=== PATIENT | male | born 1955 | race Two or more races ===

== ENCOUNTER 2017-09-17 14:26 | Observation (INO) | payer MEDICARE, OTHER ==
--- NOTE | 2017-09-17 15:55 | PDOC ---
History of Present Illness - History of Present Illness Initial Comments: 09/17/17 16:07 62 y.o male with significant past medical history of IDDM , HTN, HLD, who presents to the emergency room BIBA from home with a glucose in the low 30s and possible syncopal episode. EMS administered 2 glucose packets en route. The patient explains that he took his insulin yesterday morning as he normally does.Around 6pm yesterday evening, the patient ate his last meal. Then around midnight, the patient went to get a glass of water in the kitchen and cannot remember anything after filling up the glass of water. He denies lightheadedness , dizziness, chest pain, palpitations, recent illness, back pain, abd pain, headache, or SOB prior to losing consciousness. The patients family member repeatedly called the patient this morning and could not get hold of him. She showed up to the patients house and heard the phone ringing from the outside. She called 911 and police knocked the door down. The patient was passed out on the kitchen floor when they found him. The patient believes that he must have been on the floor for 8 hours. The patient does not have any complaints at this time. He notes that he recently switched to Insulin from metformin and glyburide 3 months ago. Denies fever, chills, nausea, vomiting Denies chest pain, SOB, cough. Denies recent illness. Allergies: NKA PCP: Dr. Joy <Rosalinda Diego - Last Filed: 09/17/17 16:07> - General History Source: Patient <Leroy Salas - Last Filed: 09/17/17 20:26> - General Chief Complaint: Blood Sugar Problem Stated Complaint: BLOOD SUGAR ISSUES Time Seen by Provider: 09/17/17 15:05 Past History <Rosalinda Diego - Last Filed: 09/17/17 16:07> - Past Medical History Anemia: Yes (IRON DEFICIENT) Asthma: No Cancer: No Cardiac Disorders: No COPD: No CHF: No DVT: No Diabetes: Yes GI Disorders: Yes (REDUNDANT COLON;) HTN: Yes Hypercholesterolemia: Yes Kidney Stones: Yes Thyroid Disease: No - Surgical History Abdominal Surgery: No Appendectomy: No Cardiac Surgery: No Cholecystectomy: No Lung Surgery: No Neurologic Surgery: No - Suicide/Smoking/Psychosocial Hx Smoking History: Never smoked Have you smoked in the past 12 months: No Information on smoking cessation initiated: No Hx Alcohol Use: No Drug/Substance Use Hx: No Substance Use Type: None Hx Substance Use Treatment: No <Leroy Salas - Last Filed: 09/17/17 20:26> - Past Medical History Allergies/Adverse Reactions: Allergies Allergy/AdvReac Type Severity Reaction Status Date / Time No Known Allergies Allergy Verified 09/17/17 14:56 Home Medications: Ambulatory Orders Alfuzosin HCl [Alfuzosin HCl ER] 10 mg PO DAILY 04/06/14 Amlodipine Besylate [Norvasc -] 10 mg PO DAILY 04/06/14 Lovastatin 40 mg PO HS 04/06/14 Review of Systems - Review of Systems Able to Perform ROS?: Yes Comments:: 09/17/17 16:07 CONSTITUTIONAL: No reported: Fever, Chills, Diaphoresis, Generalized Weakness, Malaise, Loss of Appetite HEENT: No reported: Rhinorrhea, Nasal Congestion, Throat Pain, Throat Swelling, Difficulty Swallowing, Mouth Swelling, Ear Pain, Eye Pain, Visual Changes CARDIOVASCULAR: No reported: Chest Pain, Syncope, Palpitations, Irregular Heart Rate, Lightheadedness, Peripheral Edema RESPIRATORY: No reported: Cough, Shortness of Breath, SOB with Exertion, Orthopnea, Wheezing , Stridor, Hemoptysis GASTROINTESTINAL: No reported: Abdominal pain, Abdominal Distension, Nausea, Vomiting, Diarrhea, Constipation, Melena, Hematochezia GENITOURINARY: No reported: Dysuria, Frequency, Urgency, Hesitancy, Flank Pain, Genital Pain MUSCULOSKELETAL: No reported: Myalgia, Arthralgia, Joint Swelling, Back pain, Neck Pain SKIN: No reported: Rash, Itching, Pallor HEMEATOLOGIC/IMMUNOLOGIC: No reported: Easy Bleeding, Easy Bruising, Lymphadenopathy, Frequent infections ENDOCRINE: +Low glucose No reported: Unexplained Weight Gain, Unexplained Weight Loss, Heat Intolerance , Cold Intolerance NEUROLOGIC: +syncopal episode No reported: Headache, Focal Weakness, Paresthesias, Vertigo, Lightheadedness, Unsteady Gait, Seizure, Mental Status Changes, Incontinence PSYCHIATRIC: No reported: Anxiety, Depression <Rosalinda Diego - Last Filed: 09/17/17 16:07> *Physical Exam - Vital Signs Last Vital Signs Temp Pulse Resp BP Pulse Ox 97.9 F 72 18 157/79 100 12/29/17 14:40 09/17/17 14:40 09/17/17 14:40 09/17/17 14:40 09/17/17 14:40 - Physical Exam Comments: 09/17/17 16:08 GENERAL: The patient is awake, alert, and fully oriented, Nontoxic - in no acute distress. HEAD: Normocephalic, atraumatic. EYES: extraocular movements intact, sclera anicteric, conjunctiva clear. ENT: Normal voice, Moist mucous membranes. NECK: Normal range of motion, supple LUNGS: Breath sounds equal, clear to auscultation bilaterally. No wheezes, no rhonchi, no rales. HEART: Regular rate and rhythm, normal S1 and S2 without murmur, rub or gallop. ABDOMEN: Soft, nontender, normoactive bowel sounds. No guarding, no rebound. . No CVA tenderness EXTREMITIES: Normal range of motion, no edema. No clubbing or cyanosis. No cords, erythema, or tenderness. NEUROLOGICAL: No facial assymetry, Normal speech, PSYCH: Normal mood, normal affect. SKIN: Warm, Dry, normal turgor, Back: No midline tenderness to the cervical, thoracic or lumbar spine Musculoskelatal: FROM of b/l shoulders, elbows, wrist. FROM of hips, knees, ankles - No signs of ecchymosis, erythema, or crepitus noted on palpation extremities, chest wall, clavicals, ribs, back. <Rosalinda Diego - Last Filed: 09/17/17 16:07> - Vital Signs Last Vital Signs Temp Pulse Resp BP Pulse Ox 97.9 F 72 18 157/79 100 09/17/17 14:40 09/17/17 14:40 09/17/17 14:40 09/17/17 14:40 09/17/17 14:40 <Leroy Salas - Last Filed: 09/17/17 20:26> ED Treatment Course - ADDITIONAL ORDERS Additional order review: Laboratory Results 09/17/17 14:50 POC Glucometer [id number] 09/17/17 14:50 POC Glucometer [id number] <Rosalinda Diego - Last Filed: 09/17/17 16:07> - LABORATORY CBC & Chemistry Diagram: 09/17/17 17:00 09/17/17 17:00 - ADDITIONAL ORDERS Additional order review: Laboratory Results 09/17/17 14:50 POC Glucometer [id number] 09/17/17 14:50 POC Glucometer [id number] - RADIOLOGY Radiology Studies Ordered: Category Date Time Status CHEST X-RAY PORTABLE* [RAD] Stat Radiology 09/17/17 15:45 Ordered <Leroy Salas - Last Filed: 09/17/17 20:26> Medical Decision Making - Medical Decision Making 09/17/17 15:46 62y M hx of iDDM, HTN, NL, presents with complaint of syncope. The pt states he lasts remember around midnight, he woke up for something to drink, and that is the last thing he rmemebers. His family found that he was not answering his phone, called EMS and they found him unresponsive onthe floor with BGM 37 - he states he had some food last night a small dinner - didnt take his insulin this AM. Pt states he was feeling well yesterday and is fine currently without any compliaints of headache, dizziness, cp, sob, palpiations, abd pain, n/v, back pain, neck pain, extremity pain. ddx = syncope - anemia, metabolic dernangement, arrythmia - no associated pain or neuro symtoms to suggest a vascular event possibly related to hypoglcyemia - although pt has not taken any antihypoglycemics 09/17/17 19:25 labs reviewed cxr neg will observe the pt for hypoglycemia and syncope 09/17/17 20:26 case yahir kwok - agree with dg and will observe in tele under dr. kidd service <Leroy Salas - Last Filed: 09/17/17 20:26> *DC/Admit/Observation/Transfer - Attestations Scribe Attestion: 09/17/17 16:08 Documentation prepared by YEFRI Landers, acting as medical dir for Leroy Salas MD. <Rosalinda Diego - Last Filed: 09/17/17 16:07> - Discharge Dispostion Admit: Yes <Leroy Salas - Last Filed: 09/17/17 20:26> Diagnosis at time of Disposition: Syncope Qualifiers: Syncope type: unspecified Qualified Code(s): R55 - Syncope and collapse - Discharge Dispostion Condition at time of disposition: Guarded
[2017-09-17 17:10] LABS: BASO % 0.2 % (0-2.0); EOS % 0.3 % (0-4.5); HEMATOCRIT 40.5 % (35.4-49); HEMOGLOBIN 12.8 GM/dL (11.7-16.9); LYMPH % 17.2 % (8-40); MCH 22.3 pg (25.7-33.7); MCHC 31.7 g/dl (32.0-35.9); MEAN CELL VOLUME 70.4 fl (80-96); MEAN PLT VOLUME 8.2 fl (7.5-11.1); MONO % 4.1 % (3.8-10.2); NEUT % 78.2 % (42.8-82.8); PLATELET COUNT 291 K/MM3 (134-434); RBC 5.75 M/mm3 (4.00-5.60); WHITE BLOOD COUNT 10.5 K/mm3 (4.0-10.0)
[2017-09-17 17:16] LABS: ADD RBC MORPHOLOGY YES
[2017-09-17 17:20] LABS: URINE APPEARANCE CLEAR; URINE BILIRUBIN NEGATIVE (NEGATIVE); URINE BLOOD 1+ (NEGATIVE); URINE COLOR LTYELLOW; URINE GLUCOSE (UA) 1+ (NEGATIVE); URINE KETONE NEGATIVE (NEGATIVE); URINE LEUK ESTERASE NEGATIVE (NEGATIVE); URINE NITRITE NEGATIVE (NEGATIVE); URINE UROBILINOGEN NEGATIVE mg/dL (0.2-1.0)
[2017-09-17 17:47] LABS: ALBUMIN 3.5 g/dl (3.4-5.0); ANION GAP 13 (8-16); BILIRUBIN,TOTAL 0.2 mg/dL (0.2-1.0); BLOOD UREA NITROGEN 11 mg/dL (7-18); CHLORIDE 103 mmol/L (98-107); CO2 23 mmol/L (21-32); CREATININE 1.1 mg/dL (0.7-1.3); GLUCOSE,RANDOM 244 mg/dL (74-106); POTASSIUM 4.2 mmol/L (3.5-5.1); SGOT/AST 15 U/L (15-37); SGPT/ALT 20 U/L (12-78); SODIUM 139 mmol/L (136-145); TOT PROT 7.2 g/dl (6.4-8.2)
[2017-09-17 17:49] LABS: ALK PHOS 146 U/L (45-117)
[2017-09-17 17:56] LABS: URINE PROTEIN 2+ (NEGATIVE)
[2017-09-17 18:27] LABS: EPI CELLS RARE /HPF (FEW)
[2017-09-17 19:58] LABS: ANISOCYTOSIS 1+; OVALOCYTE 1+; PLATELET ESTIMATE ADEQUATE; TARGET CELLS 1+; TEAR DROP CELLS 1+
--- NOTE | 2017-09-17 20:10 | HP ---
CHIEF COMPLAINT: " I passed out " PCP: Dr. Adorno HISTORY OF PRESENT ILLNESS: Patient is a belarusian speaking 62-year-old male was brought in to the ED via EMS after he was found on the floor by his granddaughter this morning. As per the patient, he was apparently well until midnight, was watching a game at home, remembers going to the kitchen to get a glass of water but doesn't remember anything what happened until 911 arrived. As per the report, EMS found his blood sugar to be in 30's was given 2 packs of glucose and he was more awake after that. No urinary or bowel incontinence. Patient denies Dizziness, headache, blurring of vision, chest pain, sob, cough, palpitation, abdominal pain, nausea or vomiting prior to the fall. Patient only reports to have been very tired in the morning. Granddaughter mentions that this morning she called him but he didn't answer so she went to his apartment and patient was found on the floor, had spilled water on himself. He was lying on the floor with his eyes opened, didn't make sense what he was talking about and started laughing. Granddaughter reports he had a similar episode about 5 years ago where he passed out in bed, had uprolling of eyes but no seizure activity. Bowel/Bladder habit normal. Sleep/Appetite normal prior to this incident. ER course was notable for: (1) Afebrile, hemodynamically stable (2) EKG: No ST or T wave changes, CXR: no acute pathology, no # (3) Head CT without contrast-pending Recent Travel: None PAST MEDICAL HISTORY: Hypertension, Hyperlipidemia, DM, h/o Syncope PAST SURGICAL HISTORY: None Social History: Smoking: Denies Alcohol: Denies Drugs: Denies Family History: Non contributory Allergies No Known Allergies Allergy (Verified 09/17/17 14:56) HOME MEDICATIONS: Home Medications Medication Instructions Recorded Alfuzosin HCl [Alfuzosin HCl ER] 10 mg PO DAILY 04/06/14 Amlodipine Besylate [Norvasc -] 10 mg PO DAILY 04/06/14 Lovastatin 40 mg PO HS 04/06/14 REVIEW OF SYSTEMS CONSTITUTIONAL: Absent: fever, chills, diaphoresis, generalized weakness, malaise, loss of appetite, weight change HEENT: Absent: rhinorrhea, nasal congestion, throat pain, throat swelling, difficulty swallowing, mouth swelling, ear pain, eye pain, visual changes CARDIOVASCULAR: Absent: chest pain, syncope, palpitations, irregular heart rate, lightheadedness , peripheral edema RESPIRATORY: Absent: cough, shortness of breath, dyspnea with exertion, orthopnea, wheezing, stridor, hemoptysis GASTROINTESTINAL: Absent: abdominal pain, abdominal distension, nausea, vomiting, diarrhea, constipation, melena, hematochezia GENITOURINARY: Absent: dysuria, frequency, urgency, hesitancy, hematuria, flank pain, genital pain MUSCULOSKELETAL: Absent: myalgia, arthralgia, joint swelling, back pain, neck pain SKIN: Absent: rash, itching, pallor HEMATOLOGIC/IMMUNOLOGIC: Absent: easy bleeding, easy bruising, lymphadenopathy, frequent infections ENDOCRINE: Absent: unexplained weight gain, unexplained weight loss, heat intolerance, cold intolerance NEUROLOGIC: Present: Syncope Absent: headache, focal weakness or paresthesias, dizziness, unsteady gait, seizure, mental status changes, bladder or bowel incontinence PSYCHIATRIC: Absent: anxiety, depression, suicidal or homicidal ideation, hallucinations. PHYSICAL EXAMINATION Vital Signs - 24 hr 09/17/17 09/17/17 14:40 16:54 Temperature 97.9 F Pulse Rate 72 Respiratory 18 Rate Blood Pressure 157/79 O2 Sat by Pulse 100 98 Oximetry (%) GENERAL: Patient is comfortably sitting, eating dinner, Awake, alert, and fully oriented, in no acute distress. HEAD: Normal with no signs of trauma. EYES: EOM intact, no pallor or icterus. EARS, NOSE, THROAT: Ears normal. Moist mucous membranes. NECK: Supple. LUNGS: B/L breath sounds equal, clear to auscultation bilaterally. No wheezes, and no crackles. No accessory muscle use. HEART: Regular rate and rhythm, normal S1 and S2 without murmur. ABDOMEN: Soft, nontender, not distended, normoactive bowel sounds, no guarding, no rebound, no masses. No hepatomegaly or splenomegaly. MUSCULOSKELETAL: Normal range of motion at all joints. No bony deformities or tenderness. No CVA tenderness. UPPER EXTREMITIES: 2+ pulses, warm, well-perfused. No cyanosis. No clubbing. No peripheral edema. LOWER EXTREMITIES: 2+ pulses, warm, well-perfused. No calf tenderness. No peripheral edema. NEUROLOGICAL: No facial droop, power 5/5 in all extremities, reflexes 2+, finger nose test normal, Cranial nerves II-XII intact. Normal speech. Normal gait-stable. PSYCHIATRIC: Cooperative. Good eye contact. Appropriate mood and affect. SKIN: Warm, dry, normal turgor, no rashes or lesions noted, normal capillary refill. Laboratory Results - last 24 hr 09/17/17 09/17/17 09/17/17 14:50 16:39 16:52 WBC RBC Hgb Hct MCV MCH MCHC RDW Plt Count MPV Neutrophils % Lymphocytes % Monocytes % Eosinophils % Basophils % Hypochromia Platelet Estimate Platelet Comment Poikilocytosis Anisocytosis Target Cells Tear Drop Cells Ovalocytes Sodium Potassium Chloride Carbon Dioxide Anion Gap BUN Creatinine Creat Clearance w eGFR POC Glucometer 131.41011 [phone] Random Glucose Calcium Total Bilirubin AST ALT Alkaline Phosphatase Creatine Kinase Troponin I Total Protein Albumin Urine Color Ltyellow Urine Appearance Clear Urine pH 5.0 Ur Specific [place] 1.011 Urine Protein 2+ H Urine Glucose (UA) 1+ H Urine Ketones Negative Urine Blood 1+ H Urine Nitrite Negative Urine Bilirubin Negative Urine Urobilinogen Negative Urine WBC (Auto) 1 Urine RBC (Auto) 2 Ur Epithelial Cells Rare 09/17/17 09/17/17 17:00 17:00 WBC 10.5 H RBC 5.75 H D Hgb 12.8 D Hct 40.5 D MCV 70.4 L MCH 22.3 L MCHC 31.7 L RDW 20.0 H Plt Count 291 MPV 8.2 Neutrophils % 78.2 Lymphocytes % 17.2 Monocytes % 4.1 Eosinophils % 0.3 Basophils % 0.2 Hypochromia 1+ Platelet Estimate Adequate Platelet Comment Poikilocytosis 1+ Anisocytosis 1+ Target Cells 1+ Tear Drop Cells 1+ Ovalocytes 1+ Sodium 139 Potassium 4.2 D Chloride 103 Carbon Dioxide 23 D Anion Gap 13 BUN 11 D Creatinine 1.1 Creat Clearance w eGFR > 60 POC Glucometer Random Glucose 244 H D Calcium 9.0 Total Bilirubin 0.2 D AST 15 D ALT 20 D Alkaline Phosphatase 146 H D Creatine Kinase 115 Troponin I < 0.02 Total Protein 7.2 Albumin 3.5 Urine Color Urine Appearance Urine pH Ur Specific [place] Urine Protein Urine Glucose (UA) Urine Ketones Urine Blood Urine Nitrite Urine Bilirubin Urine Urobilinogen Urine WBC (Auto) Urine RBC (Auto) Ur Epithelial Cells ASSESSMENT/PLAN: Patient is a belarusian speaking 62-year-old male with significant past medical history of Hypertension, Hyperlipidemia, DM, h/o Syncope was brought in to the ED via EMS after he was found be hypoglycemic and with syncope # Syncope-r/o cardiac arrythmias Most likely due to hypoglycemia. However, given the h/o pt being on the floor for 8 hrs, would like to r/o other causes of syncope Admit in Tele/obs Continuous cardiac monitoring Head CT without contrast: Pending Repeat EKG in am Echo Carotid doppler # Hypoglycemia EMS reports his blood sugar was in 30's, now it has improved Adjust his home medication and educate about finger stick glucose monitoring at home before he takes the Insulin. # Diabetes Mellitus A1c pending Finger stick glucose monitoring ISS, coverage only after blood sugar is > 200 mg/dl. Watch for hypoglycemic symptoms. # Hypertension-Controlled Continue Amlodipine 10mg PO Daily # Hyperlipidemia Continue Atorvastatin # FEN IV NS @ 83mls.hr Electrolytes WNL Diabetic diet # Prophylaxis For DVT: On scds For GI: Not indicated # Code Status: Full Code # Dispo: Duration of stay likely 1-2 days. Illness, Investigation and Plan of care explained to the patient and his granddaughters. Case to be discussed with Dr. Carrera.
[2017-09-17] MEDS ORDERED: SODIUM CHLORIDE 1,000 ML IV SCH (20:15)
--- NOTE | 2017-09-17 20:54 | PN ---
Teaching Attending Note Name of Resident: Taylor Caballero ATTENDING PHYSICIAN STATEMENT I saw and evaluated the patient. I reviewed the resident's note and discussed the case with the resident. I agree with the resident's findings and plan as documented. SUBJECTIVE: This is a 62 year old man with a history of HTN, hyperlipidemia, type 2 DM who was brought in to the ED after being found on the floor. The last thing he remembers is going into the kitchen to get a glass of water around midnight. When family couldn't reach him by phone this morning, they called 911. Police broke down his door and he was found confused on the kitchen floor. He was found to have a blood sugar in 30s and was given 2 packets of sugar by EMS. He then became more alert. OBJECTIVE: Vital Signs Period Temp Pulse Resp BP Sys/[place] Pulse Ox Last 24 Hr 97.9 F 72 18 157/79 98-100 HEART: S1S2, RRR LUNGS: Clear ABDOMEN: Soft, non-tender, non-distended, normal BS EXTREMITIES: No edema NEUROLOGICAL: Alert, oriented, no focal deficits Laboratory Tests 09/17/17 09/17/17 09/17/17 14:50 16:39 16:52 WBC RBC Hgb Hct MCV MCH MCHC RDW Plt Count MPV Neutrophils % Lymphocytes % Monocytes % Eosinophils % Basophils % Hypochromia Platelet Estimate Platelet Comment Poikilocytosis Anisocytosis Target Cells Tear Drop Cells Ovalocytes Sodium Potassium Chloride Carbon Dioxide Anion Gap BUN Creatinine Creat Clearance w eGFR POC Glucometer 131.32338 282.48888 Random Glucose Calcium Total Bilirubin AST ALT Alkaline Phosphatase Creatine Kinase Troponin I Total Protein Albumin Urine Color Ltyellow Urine Appearance Clear Urine pH 5.0 Ur Specific [place] 1.011 Urine Protein 2+ H Urine Glucose (UA) 1+ H Urine Ketones Negative Urine Blood 1+ H Urine Nitrite Negative Urine Bilirubin Negative Urine Urobilinogen Negative Urine WBC (Auto) 1 Urine RBC (Auto) 2 Ur Epithelial Cells Rare 09/17/17 09/17/17 17:00 17:00 WBC 10.5 H RBC 5.75 H D Hgb 12.8 D Hct 40.5 D MCV 70.4 L MCH 22.3 L MCHC 31.7 L RDW 20.0 H Plt Count 291 MPV 8.2 Neutrophils % 78.2 Lymphocytes % 17.2 Monocytes % 4.1 Eosinophils % 0.3 Basophils % 0.2 Hypochromia 1+ Platelet Estimate Adequate Platelet Comment Poikilocytosis 1+ Anisocytosis 1+ Target Cells 1+ Tear Drop Cells 1+ Ovalocytes 1+ Sodium 139 Potassium 4.2 D Chloride 103 Carbon Dioxide 23 D Anion Gap 13 BUN 11 D Creatinine 1.1 Creat Clearance w eGFR > 60 POC Glucometer Random Glucose 244 H D Calcium 9.0 Total Bilirubin 0.2 D AST 15 D ALT 20 D Alkaline Phosphatase 146 H D Creatine Kinase 115 Troponin I < 0.02 Total Protein 7.2 Albumin 3.5 Urine Color Urine Appearance Urine pH Ur Specific [place] Urine Protein Urine Glucose (UA) Urine Ketones Urine Blood Urine Nitrite Urine Bilirubin Urine Urobilinogen Urine WBC (Auto) Urine RBC (Auto) Ur Epithelial Cells Home Medications Medication Instructions Recorded Alfuzosin HCl [Alfuzosin HCl ER] 10 mg PO DAILY 04/06/14 Amlodipine Besylate [Norvasc -] 10 mg PO DAILY 04/06/14 Lovastatin 40 mg PO HS 04/06/14 ASSESSMENT AND PLAN: This is a 62 year old man with a history of HTN, hyperlipidemia, type 2 DM who presented to the ED after being found on the floor confused and with a glucose in the 30s. 1. Syncope secondary to hypoglycemia - Observe on telemetry - Follow-up head CT - Echocardiogram - Carotid dopplers 2. Type 2 DM, uncontrolled, with hypoglycemia - Hold home diabetes medications - Fingersticks with Novolog sliding scale 3. HTN - Continue Norvasc 4. Hyperlipidemia - Continue Mevacor
[2017-09-17] MEDS ORDERED: ATORVASTATIN CA 40 MG TABLET (FP) ONE (22:09)
[2017-09-17] MEDS: INSULIN SLIDING SCALE (NOVOLOG) 1 VIAL SQ SCH (22:14)
[2017-09-17] MEDS: ATORVASTATIN CA 10 MG TABLET (FP) PO SCH (22:14)
[2017-09-18 06:31] LABS: BASO % 0.3 % (0-2.0); EOS % 1.5 % (0-4.5); HEMOGLOBIN 12.8 GM/dL (11.7-16.9); LYMPH % 28.1 % (8-40); MCH 22.3 pg (25.7-33.7); MCHC 31.3 g/dl (32.0-35.9); MEAN CELL VOLUME 71.3 fl (80-96); MEAN PLT VOLUME 8.7 fl (7.5-11.1); MONO % 7.2 % (3.8-10.2); NEUT % 62.9 % (42.8-82.8); PLATELET COUNT 324 K/MM3 (134-434); RBC 5.74 M/mm3 (4.00-5.60); RDW 20.3 % (11.9-15.9); WHITE BLOOD COUNT 9.1 K/mm3 (4.0-10.0)
[2017-09-18 06:54] LABS: ALBUMIN 3.3 g/dl (3.4-5.0); ANION GAP 6 (8-16); BILIRUBIN,TOTAL 0.3 mg/dL (0.2-1.0); BLOOD UREA NITROGEN 9 mg/dL (7-18); CALCIUM 8.7 mg/dL (8.5-10.1); CHLORIDE 106 mmol/L (98-107); CHOLESTEROL 146 mg/dL (50-200); CO2 29 mmol/L (21-32); CREATININE 0.9 mg/dL (0.7-1.3); HDL CHOLESTEROL 49 mg/dL (40-60); LDL CHOLESTEROL (ONLY SJRH) 84 mg/dL (5-100); POTASSIUM 4.3 mmol/L (3.5-5.1); SGOT/AST 15 U/L (15-37); SGPT/ALT 18 U/L (12-78); SODIUM 141 mmol/L (136-145); TRIGLYCERIDES 66 mg/dL (35-160)
[2017-09-18 06:56] LABS: ALK PHOS 141 U/L (45-117)
[2017-09-18 07:01] LABS: GLUCOSE,RANDOM 36 mg/dL (74-106)
[2017-09-18] MEDS: INSULIN SLIDING SCALE (NOVOLOG) 1 VIAL SQ SCH ×4 (07:17→22:08)
[2017-09-18] MEDS ORDERED: TAMSULOSIN HCL 0.4 MG CAP.ER.24H (FP) ONE (08:45)
[2017-09-18] MEDS: TAMSULOSIN HCL 0.4 MG CAP.ER.24H (FP) PO SCH (08:57)
[2017-09-18] MEDS: amLODIPine BESYLATE 10 MG TABLET (FP) PO SCH (09:35)
--- NOTE | 2017-09-18 11:01 | EKG ---
Test Reason : Blood Pressure : / mmHG Vent. Rate : 080 BPM Atrial Rate : 080 BPM P-R Int : 148 ms QRS Dur : 074 ms QT Int : 346 ms P-R-T Axes : 050 023 023 degrees QTc Int : 399 ms NORMAL SINUS RHYTHM NORMAL ECG WHEN COMPARED WITH ECG OF 13-MAY-2016 23:33, NO SIGNIFICANT CHANGE WAS FOUND BASELINE ARTIFACT Confirmed by AVIS CAVAZOS MD ([id number]) on 09/18/2017 11:01:13 AM Referred By: Confirmed By:AVIS CAVAZOS MD
--- NOTE | 2017-09-18 11:20 | CON.CARD ---
Consult Consult Specialty:: Cardiology Referred by:: Hospitalist Reason for Consultation:: Syncope - History of Present Illness Chief Complaint: Syncope History of Present Illness: 62 year old man h/o HTN, DMII< HLD, admitted with syncope and hypoglycemia. Pt seen and examined this am in nad. awake, alert, oriented. states he is feeling better. Denies any chest pain, sob, palpitations. No pnd, orthopnea, or LE edema. Pt was found unconscious on the floor at home. Glucose was in the 30s. - History Source History Provided By: Patient, Medical Record Limitations to Obtaining History: Language Barrier - Past Medical History Cardio/Vascular: Yes: HTN, Hyperlipdemia Endocrine: Yes: Diabetes Mellitus - Alcohol/Substance Use Hx Alcohol Use: No - Smoking History Smoking history: Never smoked Have you smoked in the past 12 months: No - Social History ADL: Independent History of Recent Travel: No Home Medications - Allergies Allergies/Adverse Reactions: Allergies Allergy/AdvReac Type Severity Reaction Status Date / Time No Known Allergies Allergy Verified 09/17/17 14:56 - Home Medications Home Medications: Ambulatory Orders Alfuzosin HCl [Alfuzosin HCl ER] 10 mg PO DAILY 04/06/14 Amlodipine Besylate [Norvasc -] 10 mg PO DAILY 04/06/14 Lovastatin 40 mg PO HS 04/06/14 Family Disease History - Family Disease History Family History: Denies Review of Systems - Review of Systems Constitutional: denies: No Symptoms, Chills, Diaphoresis, Fever, Lethargy, Loss of Appetite, Malaise, Night Sweats, Unintentional Wgt. Loss, Weakness, Other Eyes: denies: No Symptoms, Blind Spots, Blurred Vision, Double Vision, Eye Pain , Floaters, Photophobia, Recent Change in Vision, Other HENT: denies: No Symptoms, Difficult Swallowing, Ear Discharge, Ear Pain, Epistaxis, Gingival Bleeding, Hearing Loss, Mouth Swelling, Nasal Congestion, Ocular Prosthesis, Throat Pain, Toothache, Ringing in Ears, Other Neck: denies: No Symptoms, Decreased ROM, Lumps, Pain on Movement, Stiffness, Swollen Glands, Tenderness, Other Cardiovascular: denies: No Symptoms, Chest Pain, Edema, Palpitations, Shortness of Breath, Other Respiratory: denies: No Symptoms, Cough, Exercise Intolerance, Hemoptysis, Orthopnea, PND, Snoring, SOB, SOB on Exertion, Wheezing, Other Gastrointestinal: denies: No Symptoms, Abdominal Pain, Bloating, Constipation, Diarrhea, Dysphagia, Indigestion, Melena, Nausea, Rectal Bleeding, Vomiting, Vomiting Blood, Other Genitourinary: denies: No Symptoms, Burning, Discharge, Dysuria, Flank Pain, Frequency, Hematuria, Incontinence, Lesions, Menses, Pain, Testicular Mass, Testicular Pain, Testicular Swelling, Urgency, Vaginal Bleeding, Other Breasts: denies: No Symptoms Reported, See HPI, Breast Implants, Discharge from Nipple, Lumps, Pain, Skin Changes, Other Musculoskeletal: denies: No Symptoms, Back Pain, Crepitus, Decreased ROM, Extremity Pain, Joint Pain, Joint Swelling, Muscle Pain, Muscle Cramps, Muscle Weakness, Other Integumentary: denies: No Symptoms, Blister, Bruising, Change in Color, Eczema, Erythema, Incision, Lesions, Lump, Pallor, Pruritis, Rash, Wound, Other Neurological: reports: Change in LOC, Syncope. denies: No Symptoms, Change in Speech, Confusion, Dizziness, Headache, Incoordination, Numbness, Parasthesia, Pre-Existing Deficit, Seizure, Tremors, Unsteady Gait, Weakness, Other Endocrine: denies: No Symptoms, Excessive Sweating, Flushing, Increased Hunger, Increased Thirst, Intolerance to Cold, Intolerance to Heat, Unexplained Weight Gain, Unexplained Weight Loss, Other Hematology/Lymphatic: denies: No Symptoms, Easily Bruised, Excessive Bleeding, Swollen Glands, Other Psychiatric: denies: No Symptoms, Altered Sleep Pattern, Anxiety, Depression, Hallucinations, Panic, Paranoia, Suicidal, Other - Risk Factors Known Risk Factors: Yes: Diabetes Mellitus, Hypercholesterolemia, Hypertension Vital Signs: Vital Signs Temperature 98.6 F 09/18/17 07:32 Pulse Rate 78 09/18/17 07:32 Respiratory Rate 18 09/18/17 07:32 Blood Pressure 141/74 09/18/17 07:32 O2 Sat by Pulse Oximetry (%) 98 09/18/17 07:32 Constitutional: Yes: Well Nourished, No Distress, Calm Eyes: Yes: WNL, Conjunctiva Clear, EOM Intact, PERRL HENT: Yes: WNL, Atraumatic, Normocephalic Neck: Yes: WNL, Supple, Trachea Midline Respiratory: Yes: WNL, Regular, CTA Bilaterally Gastrointestinal: Yes: WNL, Normal Bowel Sounds, Soft Renal/: Yes: WNL Cardiovascular: Yes: WNL, Regular Rate and Rhythm. No: Bradycardia, Tachycardia , Pulse Irregular, Gallop, Rub, Varicosities JVD: No Carotid Bruit: No PMI: Non-Displaced Heart Sounds: Yes: S1, S2. No: Split S2, S3, S4, Clicks, Gallop, Rub, Bruit Murmur: No: Systolic Murmur, Diastolic Murmur, Grade 1, Grade 2, Grade 3, Grade 4, Grade 5, Grade 6 Musculoskeletal: Yes: WNL Extremities: Yes: WNL Edema: No Peripheral Pulses WNL: Yes Peripheral Pulses: 2+ Left Doralis Pedis, 2+ Right Dorsalis Pedis Integumentary: Yes: WNL Neurological: Yes: WNL, Alert, Oriented Psychiatric: Yes: Alert, Oriented - Other Data Labs, Other Data: CBC, BMP 09/18/17 06:15 09/18/17 06:14 Troponin, BNP 09/17/17 09/18/17 17:00 07:55 Troponin I < 0.02 < 0.02 Troponin, BNP 09/17/17 09/18/17 17:00 07:55 Troponin I < 0.02 < 0.02 ekg-nsr 80bpm, no sig ST abnl Imaging - Results Chest X-ray: Report Reviewed, Image Reviewed EKG: Report Reviewed, Image Reviewed Other: Report Reviewed, Image Reviewed (tele-nsr no sig arrhythmias) Assessment/Plan 62 year old man h/o HTN, DMII, HLD, admitted with syncope and hypoglycemia. Pt was found unconscious on the floor at home. Glucose was in the 30s. Syncope-most likely due to hypoglycemia -less likely a cardiac event -EKG no sig abnl -no arrhythmias on telemetry, can monitor on tele during admission and plan for outpatient event monitor on discharge -check orthostatic BP -if remains inpatient until wednesday can check echo otherwise can be done as outpatient -carotid doppler showed no sig stenosis -work up of hypoglycemia HTN-adequately controlled for now -can cont norvasc for now, ultimately would benefit from an MATTIE-I/arb given DMII , this can be done as outpatient
--- NOTE | 2017-09-18 13:33 | PN ---
Physical Exam: SUBJECTIVE: Patient seen and examined in the ED. He is currently awaiting a bed assignment to [facility]. OBJECTIVE: Home medications verified at [facility] pharmacy: - Lantus 25u daily at hs - Lovastatin 40mg daily - Amlodopine 10mg daily - Glipizide - last picked up in April, no current prescriptions - Janumet (Januvia plus Metformin), last prescribed April 2017 for 1 month supply Blood sugar monitoring q 4 hours, x 24 hours, cardiac monitoring x 24 hours Vital Signs Period Temp Pulse Resp BP Sys/[place] Pulse Ox Last 24 Hr 97.9 F-98.6 F 72-98 18-19 125-157/61-81 98-100 GENERAL: The patient is awake, alert, and fully oriented, in no acute distress. HEAD: Normal with no signs of trauma. EYES: PERRL, extraocular movements intact, sclera anicteric, conjunctiva clear. No ptosis. ENT: Ears normal, nares patent, oropharynx clear without exudates, moist mucous membranes. NECK: Trachea midline, full range of motion, supple. LUNGS: Breath sounds equal, clear to auscultation bilaterally, no wheezes, no crackles, no accessory muscle use. HEART: Regular rate and rhythm ABDOMEN: Soft, nontender, nondistended, normoactive bowel sounds, no guarding, no rebound, no hepatosplenomegaly, no masses. EXTREMITIES: left hand pain/mild swelling/pt states he must of injured his hand when he fell yesterday, will xray NEUROLOGICAL: Normal speech, gait not observed. PSYCH: Normal mood, normal affect. SKIN: Warm, dry, normal turgor, no rashes or lesions noted Laboratory Results - last 24 hr 09/17/17 09/17/17 09/17/17 14:50 16:39 16:52 WBC RBC Hgb Hct MCV MCH MCHC RDW Plt Count MPV Neutrophils % Lymphocytes % Monocytes % Eosinophils % Basophils % Hypochromia Platelet Estimate Platelet Comment Poikilocytosis Anisocytosis Target Cells Tear Drop Cells Ovalocytes Sodium Potassium Chloride Carbon Dioxide Anion Gap BUN Creatinine Creat Clearance w eGFR POC Glucometer [phone] Random Glucose Hemoglobin A1c % Calcium Total Bilirubin AST ALT Alkaline Phosphatase Creatine Kinase Troponin I Total Protein Albumin Triglycerides Cholesterol Total LDL Cholesterol HDL Cholesterol Urine Color Ltyellow Urine Appearance Clear Urine pH 5.0 Ur Specific [place] 1.011 Urine Protein 2+ H Urine Glucose (UA) 1+ H Urine Ketones Negative Urine Blood 1+ H Urine Nitrite Negative Urine Bilirubin Negative Urine Urobilinogen Negative Ur Leukocyte Esterase Negative Urine WBC (Auto) 1 Urine RBC (Auto) 2 Ur Epithelial Cells Rare 09/17/17 09/17/17 09/17/17 17:00 17:00 22:11 WBC 10.5 H RBC 5.75 H D Hgb 12.8 D Hct 40.5 D MCV 70.4 L MCH 22.3 L MCHC 31.7 L RDW 20.0 H Plt Count 291 MPV 8.2 Neutrophils % 78.2 Lymphocytes % 17.2 Monocytes % 4.1 Eosinophils % 0.3 Basophils % 0.2 Hypochromia 1+ Platelet Estimate Adequate Platelet Comment Poikilocytosis 1+ Anisocytosis 1+ Target Cells 1+ Tear Drop Cells 1+ Ovalocytes 1+ Sodium 139 Potassium 4.2 D Chloride 103 Carbon Dioxide 23 D Anion Gap 13 BUN 11 D Creatinine 1.1 Creat Clearance w eGFR > 60 POC Glucometer [phone] Random Glucose 244 H D Hemoglobin A1c % Calcium 9.0 Total Bilirubin 0.2 D AST 15 D ALT 20 D Alkaline Phosphatase 146 H D Creatine Kinase 115 Troponin I < 0.02 Total Protein 7.2 Albumin 3.5 Triglycerides Cholesterol Total LDL Cholesterol HDL Cholesterol Urine Color Urine Appearance Urine pH Ur Specific [place] Urine Protein Urine Glucose (UA) Urine Ketones Urine Blood Urine Nitrite Urine Bilirubin Urine Urobilinogen Ur Leukocyte Esterase Urine WBC (Auto) Urine RBC (Auto) Ur Epithelial Cells 09/18/17 09/18/17 09/18/17 06:11 06:14 06:14 WBC RBC Hgb Hct MCV MCH MCHC RDW Plt Count MPV Neutrophils % Lymphocytes % Monocytes % Eosinophils % Basophils % Hypochromia Platelet Estimate Platelet Comment Poikilocytosis Anisocytosis Target Cells Tear Drop Cells Ovalocytes Sodium 141 Potassium 4.3 Chloride 106 Carbon Dioxide 29 D Anion Gap 6 L BUN 9 Creatinine 0.9 Creat Clearance w eGFR > 60 POC Glucometer < 50 Random Glucose 36 L* D Hemoglobin A1c % 9.5 H D Calcium 8.7 Total Bilirubin 0.3 D AST 15 ALT 18 Alkaline Phosphatase 141 H Creatine Kinase Troponin I Total Protein 7.0 Albumin 3.3 L Triglycerides 66 Cholesterol 146 Total LDL Cholesterol 84 HDL Cholesterol 49 Urine Color Urine Appearance Urine pH Ur Specific [place] Urine Protein Urine Glucose (UA) Urine Ketones Urine Blood Urine Nitrite Urine Bilirubin Urine Urobilinogen Ur Leukocyte Esterase Urine WBC (Auto) Urine RBC (Auto) Ur Epithelial Cells 09/18/17 09/18/17 09/18/17 06:15 06:56 07:55 WBC 9.1 RBC 5.74 H Hgb 12.8 Hct 41.0 MCV 71.3 L MCH 22.3 L MCHC 31.3 L RDW 20.3 H Plt Count 324 MPV 8.7 Neutrophils % 62.9 Lymphocytes % 28.1 D Monocytes % 7.2 Eosinophils % 1.5 D Basophils % 0.3 Hypochromia Platelet Estimate Platelet Comment Poikilocytosis Anisocytosis Target Cells Tear Drop Cells Ovalocytes Sodium Potassium Chloride Carbon Dioxide Anion Gap BUN Creatinine Creat Clearance w eGFR POC Glucometer [phone] Random Glucose Hemoglobin A1c % Calcium Total Bilirubin AST ALT Alkaline Phosphatase Creatine Kinase Troponin I < 0.02 Total Protein Albumin Triglycerides Cholesterol Total LDL Cholesterol HDL Cholesterol Urine Color Urine Appearance Urine pH Ur Specific [place] Urine Protein Urine Glucose (UA) Urine Ketones Urine Blood Urine Nitrite Urine Bilirubin Urine Urobilinogen Ur Leukocyte Esterase Urine WBC (Auto) Urine RBC (Auto) Ur Epithelial Cells 09/18/17 11:28 WBC RBC Hgb Hct MCV MCH MCHC RDW Plt Count MPV Neutrophils % Lymphocytes % Monocytes % Eosinophils % Basophils % Hypochromia Platelet Estimate Platelet Comment Poikilocytosis Anisocytosis Target Cells Tear Drop Cells Ovalocytes Sodium Potassium Chloride Carbon Dioxide Anion Gap BUN Creatinine Creat Clearance w eGFR POC Glucometer [phone] Random Glucose Hemoglobin A1c % Calcium Total Bilirubin AST ALT Alkaline Phosphatase Creatine Kinase Troponin I Total Protein Albumin Triglycerides Cholesterol Total LDL Cholesterol HDL Cholesterol Urine Color Urine Appearance Urine pH Ur Specific [place] Urine Protein Urine Glucose (UA) Urine Ketones Urine Blood Urine Nitrite Urine Bilirubin Urine Urobilinogen Ur Leukocyte Esterase Urine WBC (Auto) Urine RBC (Auto) Ur Epithelial Cells Active Medications Generic Name Dose Route Start Last Admin Trade Name Freq PRN Reason Stop Dose Admin Amlodipine Besylate 10 mg 09/18/17 10:00 09/18/17 09:35 Norvasc - PO 10 mg DAILY IRVING Administration Atorvastatin Calcium 10 mg 09/17/17 22:00 09/17/17 22:14 Lipitor - PO 10 mg HS IRVING Administration Sodium Chloride 1,000 mls @ 83 mls/hr 09/17/17 20:15 09/17/17 20:24 Normal Saline - IV 83 mls/hr ASDIR IRVING Administration Insulin Aspart 1 vial 09/17/17 22:00 09/18/17 11:29 Novolog Vial Sliding Scale - SQ Not Given ACHS [facility] Protocol Tamsulosin HCl 0.4 mg 09/18/17 08:30 09/18/17 08:57 Flomax - PO 0.4 mg DAILY@0830 [facility] Administration ASSESSMENT/PLAN: Patient is a 62 year old male with a significant past medical history of hypertension, hyperlipidemia and diabetes type 2. He was brought in via EMS on 09/17/17 after he was found on the floor by his daughter in law and police. In patient's own words, he was feeling well on the night of 09/16/2017 and was watching a baseball game. At around 11:50pm, he went to the kitchen to get a glass of water and remembers opening the refrigerator, however, he does not remember losing consciousness. He remembers being found on the floor by his daughter in law and EMS. As per ED report, patient blood sugar was in the 30s and was given glucose and was more awake after. No urinary/bowel incontinence reported. As per patient, he was recently switched to Levemir 25mg at hs by his PCP and was told to not take the Janumet (Januvia plus Metformin). However, he remembers that he took the Janumet along with the Levemir around 6pm. On exam, patient appears to be back to his baseline neurologically and was sitting comfortably in the ED watching TV. He recalls the events that led him to the hospital and knows that he was not supposed to take the Janumet any longer. He states his blood sugars are usually in the 100s to 140s during the daytime. He states that his left hand is mildly painful and swollen after the collapse at home. Imaging: CT scan of head, negative Carotid doppler: no stenosis Endocrine: Syncope secondary to severe hypoglycemic episode Monitor blood sugars q 4 Novolog sliding scale adjusted for coverage to be given if blood sugar >200 Levemir home dose (if continued) to be decreased on discharge Education to be provided for glucose monitoring at home Patient to monitor blood sugar q4 at home with glucometer Diabetes Mellitus type 2 A1c 9.4 Novolog coverage only if blood sugar is greater than 200 Cardiology: Continue to monitor on tele Cardiac risk factors: htn, hld, dm2 noted, cardiology consult Echo ordered, can be done outpt as per centerless grinder Doppler negative Hypertension, controlled BP stable, on Amlodopine 10mg home dose Check orthostatics Hyperlipidemia, chronic On home statin Muscular/Skeletal: Left arm with mild pain and swelling s/p syncope/fall Tylenol 650mg prn xray left hand to r/o fracture F.E.N. Fluids: oral intake sufficient Electrolytes: monitor bmp Nutrition: diabetic diet Prophylaxis: DVT: ambulatory GI: deferred Disposition: full code. Observation. d/c in a.m. if continues to remain stable with PCP follow up. Echo as an outpatient. Visit type - Emergency Visit Emergency Visit: Yes ED Registration Date: 09/17/17 Care time: The patient presented to the Emergency Department on the above date and was hospitalized for further evaluation of their emergent condition. - New Patient This patient is new to me today: Yes Date on this admission: 09/18/17 - Critical Care Critical Care patient: No - Discharge Referral Referred to [facility] No
[2017-09-18 19:50] VITALS: BMI 29.1
[2017-09-18] MEDS ORDERED: INSULIN (NOVOLOG) ASPART 100 UNITS/ML 10ML VIAL ONE (21:24)
[2017-09-18] MEDS: ATORVASTATIN CA 10 MG TABLET (FP) PO SCH (22:08)
[2017-09-19] MEDS: INSULIN SLIDING SCALE (NOVOLOG) 1 VIAL SQ SCH (06:38)
[2017-09-19 06:47] LABS: BASO % 0.3 % (0-2.0); EOS % 2.8 % (0-4.5); HEMATOCRIT 39.2 % (35.4-49); HEMOGLOBIN 12.4 GM/dL (11.7-16.9); LYMPH % 39.4 % (8-40); MCH 22.4 pg (25.7-33.7); MCHC 31.7 g/dl (32.0-35.9); MEAN CELL VOLUME 70.8 fl (80-96); MEAN PLT VOLUME 8.3 fl (7.5-11.1); MONO % 8.5 % (3.8-10.2); PLATELET COUNT 347 K/MM3 (134-434); RBC 5.54 M/mm3 (4.00-5.60); RDW 19.9 % (11.9-15.9); WHITE BLOOD COUNT 8.1 K/mm3 (4.0-10.0)
[2017-09-19 07:01] LABS: ALBUMIN 3.3 g/dl (3.4-5.0); BLOOD UREA NITROGEN 14 mg/dL (7-18); CHLORIDE 103 mmol/L (98-107); POTASSIUM 4.3 mmol/L (3.5-5.1); SGOT/AST 11 U/L (15-37); SODIUM 138 mmol/L (136-145)
[2017-09-19 07:04] LABS: ALK PHOS 138 U/L (45-117); ANION GAP 8 (8-16); BILIRUBIN,TOTAL 0.3 mg/dL (0.2-1.0); CALCIUM 8.9 mg/dL (8.5-10.1); CO2 27 mmol/L (21-32); CREATININE 1.1 mg/dL (0.7-1.3); GLUCOSE,RANDOM 113 mg/dL (74-106); MAGNESIUM 2.2 mg/dL (1.8-2.4); SGPT/ALT 21 U/L (12-78); TOT PROT 6.9 g/dl (6.4-8.2)
[2017-09-19] MEDS: TAMSULOSIN HCL 0.4 MG CAP.ER.24H (FP) PO SCH (08:07)
[2017-09-19] MEDS ORDERED: PT OWN MED DRAWER 7, Y5N ONE (09:47)
--- NOTE | 2017-09-19 10:08 | DS ---
Physical Exam: SUBJECTIVE: Patient seen and examined OBJECTIVE: Denies chest pain, denies shortness of breath blood sugars stable Would decrease Levemir to Levemir 10units at hs, new Glucometer and supplies ordered Patient instructed to scrap picker glucometer device and keep log of blood sugars He agrees to follow up with his PCP within 3-5 days Instructed pt to not take the Januvia/Metformin or any other hypoglycemic than the Levemir Vital Signs Period Temp Pulse Resp BP Sys/Woodward Pulse Ox Last 24 Hr 97.2 F-98.3 F 72-91 16-20 124-151/62-81 97-98 PHYSICAL EXAM GENERAL: The patient is awake, alert, and fully oriented, in no acute distress. HEAD: Normal with no signs of trauma. EYES: PERRL, extraocular movements intact, sclera anicteric, conjunctiva clear. No ptosis. ENT: Ears normal, nares patent, oropharynx clear without exudates, moist mucous membranes. NECK: Trachea midline, full range of motion, supple. LUNGS: Breath sounds equal, clear to auscultation bilaterally, no wheezes, no crackles, no accessory muscle use. HEART: Regular rate and rhythm ABDOMEN: Soft, nontender, nondistended, normoactive bowel sounds, no guarding, no rebound, no hepatosplenomegaly, no masses. EXTREMITIES: left hand pain/mild swelling/pt states he must of injured his hand when he fell yesterday, will xray NEUROLOGICAL: Normal speech, gait not observed. PSYCH: Normal mood, normal affect. SKIN: Warm, dry, normal turgor, no rashes or lesions noted LABS Laboratory Results - last 24 hr 09/18/17 09/18/17 09/18/17 11:28 16:04 16:15 WBC RBC Hgb Hct MCV MCH MCHC RDW Plt Count MPV Neutrophils % Lymphocytes % Monocytes % Eosinophils % Basophils % Sodium Potassium Chloride Carbon Dioxide Anion Gap BUN Creatinine Creat Clearance w eGFR POC Glucometer [phone] Random Glucose Hemoglobin A1c % Calcium Magnesium Total Bilirubin AST ALT Alkaline Phosphatase Troponin I < 0.02 Total Protein Albumin 09/18/17 09/19/17 09/19/17 21:04 03:22 05:05 WBC 8.1 RBC 5.54 Hgb 12.4 Hct 39.2 MCV 70.8 L MCH 22.4 L MCHC 31.7 L RDW 19.9 H Plt Count 347 MPV 8.3 Neutrophils % 49.0 D Lymphocytes % 39.4 D Monocytes % 8.5 Eosinophils % 2.8 D Basophils % 0.3 Sodium Potassium Chloride Carbon Dioxide Anion Gap BUN Creatinine Creat Clearance w eGFR POC Glucometer 325 88 Random Glucose Hemoglobin A1c % Calcium Magnesium Total Bilirubin AST ALT Alkaline Phosphatase Troponin I Total Protein Albumin 09/19/17 09/19/17 09/19/17 05:05 05:05 06:38 WBC RBC Hgb Hct MCV MCH MCHC RDW Plt Count MPV Neutrophils % Lymphocytes % Monocytes % Eosinophils % Basophils % Sodium 138 Potassium 4.3 Chloride 103 Carbon Dioxide 27 Anion Gap 8 BUN 14 D Creatinine 1.1 D Creat Clearance w eGFR > 60 POC Glucometer 125 Random Glucose 113 H D Hemoglobin A1c % 9.4 H D Calcium 8.9 Magnesium 2.2 D Total Bilirubin 0.3 AST 11 L D ALT 21 Alkaline Phosphatase 138 H Troponin I Total Protein 6.9 Albumin 3.3 L HOSPITAL COURSE: Date of Admission:09/17/17 Date of Discharge: 09/19/17 Patient is a 62 year old male with a significant past medical history of hypertension, hyperlipidemia and diabetes type 2. He was brought in via EMS on 09/17/17 after he was found on the floor by his daughter in law and police. In patient's own words, he was feeling well on the night of 09/16/2017 and was watching a baseball game. At around 11:50pm, he went to the kitchen to get a glass of water and remembers opening the refrigerator, however, he does not remember losing consciousness. He remembers being found on the floor by his daughter in law and EMS. As per ED report, patient blood sugar was in the 30s and was given glucose and was more awake after. No urinary/bowel incontinence reported. As per patient, he was recently switched to Levemir 25mg at hs by his PCP and was told to not take the Janumet (Januvia plus Metformin). However, he remembers that he took the Janumet along with the Levemir around 6pm. Since being hospitalized, his Levemir home dose was stopped and patient was placed on a Novolog sliding scale. Based on the BGMs and recent hypoglycemic episode, will decrease Levemir to Levemir 10 units at hs. However, I suspect that he will need short acting insulin in the near future to better control his sugars. It is best that his family is also taught how to use the short acting insulin and sliding scale as patient seems overwhelmed with instructions on how to use the sliding scale and may accidently take too much. His family is currently in the [place] until Wednesday. Patient in agreement to follow up with his PCP within 3-5 days on discharge. Imaging: CT scan of head, negative Carotid doppler: no stenosis Endocrine: Syncope secondary to severe hypoglycemic episode, resolved Decrease home Levemir to 10 units at HS, patient is to monitor his blood sugars and keep log for PCP May need short acting insulin in the near future, pt agrees to outpatient follow up with PCP Glucometer and supplies ordered at home pharmacy Patient instructed to scrap picker glucometer device and keep log of blood sugars He agrees to follow up with his PCP within 3-5 days Instructed pt to not take the Januvia/Metformin or any other hypoglycemic than the Levemir Diabetes Mellitus type 2 A1c 9.4 Outpatient follow up Cardiology: Cardiac risk factors: htn, hld, dm2 noted, cardiology consult and notes reviewed Echo as an outpatient, cardiology followup as outpatient Hypertension, controlled BP stable, on Amlodopine 10mg home dose Not orthostatic in hospital, continue home meds Hyperlipidemia, chronic On home statin Muscular/Skeletal: Left arm with mild pain and swelling s/p syncope/fall, no fracture Tylenol 650mg prn Disposition: Discharge home with cardiology and PCP follow up. full code. Minutes to complete discharge: 60 Discharge Summary Reason For Visit: SYNCOPE Current Active Problems Syncope (Acute) Condition: Improved - Instructions Diet, Activity, Other Instructions: Mr. Pepper: Please do not take the Metformin or Januvia unless directed by your doctor. Your Levemir dose has been decreased to Levemir 10 units at bedtime. Please check your blood sugars 3 times per day before meals and again at bedtime and record the number so that you can provide this information to your doctor. If your blood sugar at bedtime is less than 150, DO NOT take the Levemir and check your sugar in the morning. Please make sure you write down this information. Signs of hypoglycemia (low blood sugar): Feeling dizzy Nausea, vomiting Feeling thirst Confusion Controlling your blood sugar prevents health problems from diabetes. Your hemaglobin A1c is 9.4 which means your sugars are not yet controlled. An hemaglobin A1c tells about your average blood sugar in the last 3 months. Please have your hemaglobin A1c rechecked with your doctor. Please call me with any questions that you may have. It is important that you see your doctor in 3-5 days after discharge. A hatch supervisor has been assigned to you for outpatient follow up and an echocardiogram. [facility] [phone] Referrals: Raymundo Oakley MD [Staff Physician] - Madeleine Malhotra MD [Primary Care Provider] - 1 Week Disposition: HOME - Home Medications Comprehensive Discharge Medication List: Ambulatory Orders Alfuzosin HCl [Alfuzosin HCl ER] 10 mg PO DAILY 04/06/14 Amlodipine Besylate [Norvasc -] 10 mg PO DAILY 04/06/14 Lovastatin 40 mg PO HS 04/06/14 Alcohol Antiseptic Pads [Alcohol Swabs] 1 box ACHS 30 Days #30 med..pad 09/19 Blood Sugar Diagnostic [Glucose Test Strip] 1 box ACHS #120 strip 09/19/17 Insulin (Levemir) [Levemir Flexpen -] 10 units SQ DAILY #1 pen 09/19/17 Lancets [Lancets Ultra Thin] 1 box ACHS #60 each 09/19/17 Miscellaneous Medical Supply [Glucometer Device] 1 each SQ ASDIR #1 kit Miscellaneous Medical Supply [Glucometer Test Strips #100] 1 each SQ ASDIR #1 box 09/19/17 This patient is new to me today: No Emergency Visit: Yes ED Registration Date: 09/17/17 Care time: The patient presented to the Emergency Department on the above date and was hospitalized for further evaluation of their emergent condition. Critical Care patient: No - Discharge Referral Referred to [facility] Med P.C.: No
[2017-09-19] MEDS: amLODIPine BESYLATE 10 MG TABLET (FP) PO SCH (10:19)
[2017-09-19 10:40] VITALS: BP 158/77; PULSE 82; TEMP 98.3
--- NOTE | 2017-09-19 11:33 | PN ---
Progress Note, Physician History of Present Illness: seen and examined today in [facility]. no overnight events. no new complaints. - Current Medication List Current Medications: Active Medications Amlodipine Besylate (Norvasc -) 10 mg PO DAILY [facility] Last Admin: 09/19/17 10:19 Dose: 10 mg Atorvastatin Calcium (Lipitor -) 10 mg PO HS [facility] Last Admin: 09/18/17 22:08 Dose: 10 mg Insulin Aspart (Novolog Vial Sliding Scale -) 1 vial SQ ACHS [facility] PRN Reason: Protocol Last Admin: 09/19/17 06:38 Dose: Not Given Tamsulosin HCl (Flomax -) 0.4 mg PO DAILY@0830 [facility] Last Admin: 09/19/17 08:07 Dose: 0.4 mg - Objective Vital Signs: Vital Signs Temperature 98.3 F 09/19/17 10:00 Pulse Rate 82 09/19/17 10:00 Respiratory Rate 16 09/19/17 10:00 Blood Pressure 158/77 09/19/17 10:00 O2 Sat by Pulse Oximetry (%) 98 09/19/17 10:00 Constitutional: Yes: Well Nourished, No Distress, Calm Eyes: Yes: WNL, Conjunctiva Clear, EOM Intact, PERRL HENT: Yes: WNL, Atraumatic, Normocephalic Neck: Yes: WNL, Supple, Trachea Midline Cardiovascular: Yes: WNL, Regular Rate and Rhythm, S1, S2. No: Bradycardia, Tachycardia, Pulse Irregular, Bruit, JVD, Gallop, Murmur, Rub, S3, S4, Varicosities Respiratory: Yes: WNL, Regular, CTA Bilaterally. No: Rales, Rhonchi, Wheezes Gastrointestinal: Yes: WNL, Normal Bowel Sounds, Soft. No: Distention, Tenderness Musculoskeletal: Yes: WNL Extremities: Yes: WNL Edema: No Peripheral Pulses WNL: Yes Peripheral Pulses: Left Doralis Pedis: 2+, Right Dorsalis Pedis: 2+ Integumentary: Yes: WNL Neurological: Yes: WNL, Alert, Oriented, Cran Nerves II-XII Intact ...Motor Strength: WNL Psychiatric: Yes: WNL, Alert, Oriented Labs: CBC, BMP 09/19/17 05:05 09/19/17 05:05 - ....Imaging Chest X-ray: Report Reviewed, Image Reviewed EKG: Report Reviewed, Image Reviewed Other: Report Reviewed, Image Reviewed (tele-nsr, no arrhythmias recorded) Assessment/Plan 62 year old man h/o HTN, DMII, HLD, admitted with syncope and hypoglycemia. Pt was found unconscious on the floor at home. Glucose was in the 30s. Syncope-most likely due to hypoglycemia -less likely a cardiac event -EKG no sig abnl -no arrhythmias on telemetry overnight -orthostatic BP changes did not meet criteria for orthostatic hypotension -can have echo as outpatient -carotid doppler showed no sig stenosis -would consider longer term event monitor as outpatient -work up/prevention of hypoglycemia episodes -no additional planned inpatient cardiac work up at this time HTN-adequately controlled for now -can cont norvasc for now, ultimately would benefit from an MATTIE-I/arb given DMII , this can be done as outpatient -recc close outpatient f/up
== END 2017-09-19 12:08 | disposition home or self-care (01) ==
LOC: JER 14:26 → JERBED 19:29 → J4W 09-18 15:51
PROVIDERS: ADMIT Internal Medicine; ATTEND Nurse Practitioner Family
PROC: 3E0337Z Introduction of Electrolytic and Water Balance Substance into Peripheral Vein, Percutaneous Approach (ICD-10-PCS; principal; 2017-09-17)
DX: R55 Syncope and collapse (principal); E11.649 Type 2 diabetes mellitus with hypoglycemia without coma; Z79.4 Long term (current) use of insulin; I10 Essential (primary) hypertension; E78.5 Hyperlipidemia, unspecified; F50.9 Eating disorder, unspecified; Z87.442 Personal history of urinary calculi
CPT/HCPCS: 36415; 70450-TC; 71010-TC; 73130-TC-LT; 80053; 80061; 81003; 81015; 82550; 83036; 83721; 83735; 84484; 85025; 93005; 93010; 93880-TC; 99285-25; G0378

== ENCOUNTER 2020-07-28 13:20 | Inpatient (IN) | payer MEDICARE, OTHER ==
[2020-07-28 13:25] VITALS: BMI 28.3
[2020-07-28 16:13] LABS: BASO % 0.3 % (0-2.0); HEMATOCRIT 43.5 % (35.4-49); HEMOGLOBIN 13.8 GM/dL (11.7-16.9); LYMPH % 14.4 % (8-40); MCH 23.1 pg (25.7-33.7); MCHC 31.7 g/dl (32.0-35.9); MEAN CELL VOLUME 72.8 fl (80-96); MEAN PLT VOLUME 9.2 fl (7.5-11.1); MONO % 10.6 % (3.8-10.2); NEUT % 74.7 % (42.8-82.8); PLATELET COUNT 197 K/MM3 (134-434); RBC 5.97 M/mm3 (4.00-5.60); RDW 20.3 % (11.9-15.9); WHITE BLOOD COUNT 8.1 K/mm3 (4.0-10.0)
[2020-07-28 16:36] LABS: EPI CELLS 6 /uL (0-25.1); HYALINE CASTS 2 /uL (0-3.1); PH,URINE 5.5 (5.0-8.0); URINE APPEARANCE CLEAR; URINE BACTERIA 20 /uL (0-1359); URINE BILIRUBIN NEGATIVE (NEGATIVE); URINE COLOR YELLOW; URINE GLUCOSE (UA) 3+ (NEGATIVE); URINE KETONE NEGATIVE (NEGATIVE); URINE LEUK ESTERASE NEGATIVE (NEGATIVE); URINE NITRITE NEGATIVE (NEGATIVE); URINE PROTEIN 3+ (NEGATIVE); URINE RBC 5 /uL (0-23.9); URINE UROBILINOGEN 0.2 mg/dL (0.2-1.0); URINE WBC 5 /uL (0-25.8)
[2020-07-28 16:41] LABS: CHLORIDE 91 mmol/L (98-107); POTASSIUM 4.4 mmol/L (3.5-5.1); SODIUM 126 mmol/L (136-145)
[2020-07-28 16:43] LABS: CALCIUM 8.4 mg/dL (8.5-10.1)
[2020-07-28 16:44] LABS: ALBUMIN 3.1 g/dl (3.4-5.0); ANION GAP 12 MMOL/L (8-16); BLOOD UREA NITROGEN 23.7 mg/dL (7-18); CO2 24 mmol/L (21-32)
[2020-07-28] MEDS ORDERED: LACTATED RINGERS SOLUTION 1000 ML INFUS.BAG IV ONE ×2 (16:45→17:51)
[2020-07-28 16:47] LABS: SGOT/AST 31 U/L (15-37); SGPT/ALT 39 U/L (13-61)
[2020-07-28 16:48] LABS: BILIRUBIN,TOTAL 0.3 mg/dL (0.2-1)
[2020-07-28 16:49] LABS: TOT PROT 7.2 g/dl (6.4-8.2)
[2020-07-28 16:50] LABS: ALK PHOS 91 U/L (45-117)
[2020-07-28] MEDS ORDERED: POTASSIUM CHLORIDE TABS 20 MEQ TABLET.ER (FP) PO ONE ×2 (16:53→17:52)
[2020-07-28 16:56] LABS: VENOUS BASE EXCESS -1.4 mmol/L (-2-2); VENOUS O2 SATURATION 73.8 % (70-80); VENOUS PH 7.424 (7.310-7.410)
[2020-07-28] MEDS ORDERED: INSULIN REGULAR HUMAN 100 UNITS/ML *VIAL IVPUSH ONE (16:58)
[2020-07-28 17:08] LABS: GLUCOSE,RANDOM 698 mg/dL (74-106)
[2020-07-28] MEDS ORDERED: ACETAMINOPHEN 325 MG TABLET (FP) PO ONE (21:45)
[2020-07-28] MEDS ORDERED: INSULIN SLIDING SCALE (NOVOLOG) 1 VIAL SQ SCH (22:00)
[2020-07-28] MEDS: SODIUM CHLORIDE 1,000 ML IV SCH (22:20)
[2020-07-29 02:31] LABS: POTASSIUM 4.6 mmol/L (3.5-5.1)
[2020-07-29 02:32] LABS: CALCIUM 8.4 mg/dL (8.5-10.1)
[2020-07-29 02:33] LABS: BLOOD UREA NITROGEN 19.9 mg/dL (7-18)
[2020-07-29 02:36] LABS: CREATININE 1.5 mg/dL (0.55-1.3)
[2020-07-29] MEDS: HEPARIN NA (PORCINE) 5,000 UNITS/ML 1ML VIAL SQ SCH ×3 (06:33→21:05)
[2020-07-29] MEDS: INSULIN SLIDING SCALE (NOVOLOG) 1 VIAL SQ SCH ×4 (06:33→21:05)
[2020-07-29 07:30] LABS: HEMATOCRIT 39.2 % (35.4-49); HEMOGLOBIN 12.5 GM/dL (11.7-16.9); MCH 22.7 pg (25.7-33.7); MEAN PLT VOLUME 8.2 fl (7.5-11.1); PLATELET COUNT 189 K/MM3 (134-434); RBC 5.52 M/mm3 (4.00-5.60); RDW 19.5 % (11.9-15.9); WHITE BLOOD COUNT 7.6 K/mm3 (4.0-10.0)
[2020-07-29 07:55] LABS: POTASSIUM 4.3 mmol/L (3.5-5.1)
[2020-07-29 08:11] LABS: CALCIUM 8.2 mg/dL (8.5-10.1)
[2020-07-29 08:12] LABS: ALBUMIN 2.7 g/dl (3.4-5.0); BLOOD UREA NITROGEN 15.9 mg/dL (7-18); MAGNESIUM 1.8 mg/dL (1.8-2.4)
[2020-07-29 08:14] LABS: CREATININE 1.4 mg/dL (0.55-1.3)
[2020-07-29 08:15] LABS: PHOSPHOROUS 2.5 mg/dL (2.5-4.9)
[2020-07-29 08:16] LABS: BILIRUBIN,TOTAL 0.3 mg/dL (0.2-1); TOT PROT 6.1 g/dl (6.4-8.2)
[2020-07-29] MEDS: SODIUM CHLORIDE 1,000 ML IV SCH (08:52)
[2020-07-29] MEDS: TAMSULOSIN HCL 0.4 MG CAP PO SCH (08:53)
[2020-07-29] MEDS: LOSARTAN POTASSIUM 25 MG TABLET PO SCH (09:24)
[2020-07-29] MEDS: amLODIPine BESYLATE 10 MG TABLET (FP) PO SCH (09:24)
[2020-07-29] MEDS ORDERED: PATIENT'S OWN MEDICATION (NON-FORMULARY) (Mirabegron [Myrbetriq] 50 MG) PO SCH (10:00)
[2020-07-29] MEDS ORDERED: SODIUM CHLORIDE 1,000 ML IV SCH (11:00)
[2020-07-29] MEDS ORDERED: SODIUM CHLORIDE 0.45% 1,000 ML IV SCH (13:00)
[2020-07-29] MEDS ORDERED: PT OWN MED DRAWER 7, Y5N ONE ×2 (13:39→13:40)
[2020-07-29] MEDS ORDERED: cefTRIAXone SODIUM 1 GM VIAL ONE (14:42)
[2020-07-29] MEDS ORDERED: DEXTROSE 5%-WATER - 50 ML IVPB ONE (14:43)
[2020-07-29] MEDS: SODIUM CHLORIDE 0.45% 1,000 ML IV SCH (15:30)
[2020-07-29] MEDS: CEFTRIAXONE 1 GM in DEXTROSE 5%-WATER - 50 ML IVPB SCH (15:30)
[2020-07-29] MEDS: guaiFENesin/D-M SUGAR-FREE/ACLHOL-FREE 118 ML BOTTLE PO PRN (15:32)
[2020-07-29] MEDS: ACETAMINOPHEN 325 MG TABLET (FP) PO PRN ×2 (15:38→21:05)
[2020-07-29] MEDS: AZITHROMYCIN IVPB 250 MG in DEXTROSE 5%-WATER - 250 ML IVPB SCH (17:07)
[2020-07-29 19:54] LABS: EPI CELLS 5 /uL (0-25.1); HYALINE CASTS 1 /uL (0-3.1); URINE APPEARANCE CLEAR; URINE BACTERIA 5 /uL (0-1359); URINE BILIRUBIN NEGATIVE (NEGATIVE); URINE COLOR YELLOW; URINE GLUCOSE (UA) 1+ (NEGATIVE); URINE KETONE TRACE (NEGATIVE); URINE LEUK ESTERASE NEGATIVE (NEGATIVE); URINE NITRITE NEGATIVE (NEGATIVE); URINE PROTEIN 3+ (NEGATIVE); URINE RBC 10 /uL (0-23.9); URINE UROBILINOGEN 0.2 mg/dL (0.2-1.0); URINE WBC 3 /uL (0-25.8)
[2020-07-29] MEDS ORDERED: INSULIN (NOVOLOG) ASPART 100 UNITS/ML 10ML VIAL ONE (20:55)
[2020-07-29] MEDS ORDERED: INSULIN DETEMIR 20 UNIT SQ SCH (22:00)
[2020-07-30] MEDS: ACETAMINOPHEN 325 MG TABLET (FP) PO PRN ×2 (05:42→13:48)
[2020-07-30] MEDS: HEPARIN NA (PORCINE) 5,000 UNITS/ML 1ML VIAL SQ SCH ×3 (05:42→22:46)
[2020-07-30] MEDS: INSULIN SLIDING SCALE (NOVOLOG) 1 VIAL SQ SCH ×4 (06:30→22:45)
[2020-07-30] MEDS ORDERED: INSULIN SQ SCH (07:00)
[2020-07-30 08:37] LABS: BASO % 0.2 % (0-2.0); HEMATOCRIT 37.9 % (35.4-49); HEMOGLOBIN 12.1 GM/dL (11.7-16.9); LYMPH % 11.2 % (8-40); MCH 23.1 pg (25.7-33.7); MCHC 31.9 g/dl (32.0-35.9); MEAN CELL VOLUME 72.3 fl (80-96); MEAN PLT VOLUME 9.4 fl (7.5-11.1); MONO % 6.9 % (3.8-10.2); NEUT % 81.7 % (42.8-82.8); PLATELET COUNT 166 K/MM3 (134-434); RBC 5.24 M/mm3 (4.00-5.60); RDW 19.3 % (11.9-15.9); WHITE BLOOD COUNT 6.3 K/mm3 (4.0-10.0)
[2020-07-30 08:38] LABS: CHLORIDE 101 mmol/L (98-107); POTASSIUM 3.4 mmol/L (3.5-5.1); SODIUM 134 mmol/L (136-145)
[2020-07-30 08:47] LABS: ALBUMIN 2.4 g/dl (3.4-5.0); ANION GAP 9 MMOL/L (8-16); CALCIUM 7.9 mg/dL (8.5-10.1); CO2 24 mmol/L (21-32); GLUCOSE,RANDOM 245 mg/dL (74-106)
[2020-07-30 08:50] LABS: CREATININE 1.3 mg/dL (0.55-1.3); SGOT/AST 45 U/L (15-37); SGPT/ALT 36 U/L (13-61)
[2020-07-30 08:52] LABS: BILIRUBIN,TOTAL 0.3 mg/dL (0.2-1); TOT PROT 5.7 g/dl (6.4-8.2)
[2020-07-30 08:55] LABS: ALK PHOS 66 U/L (45-117)
[2020-07-30 08:56] LABS: LDH 321 U/L (87-246)
[2020-07-30 10:31] LABS: ERYTHROCYTE SEDIMENTATION RATE 14 mm/hr (0-20)
[2020-07-30] MEDS ORDERED: PT OWN MED DRAWER 7, Y5N ONE ×2 (10:34→22:14)
[2020-07-30] MEDS ORDERED: DEXTROSE 5%-WATER - 50 ML IVPB ONE (10:35)
[2020-07-30] MEDS ORDERED: cefTRIAXone SODIUM 1 GM VIAL ONE (10:35)
[2020-07-30] MEDS: AZITHROMYCIN IVPB 250 MG in DEXTROSE 5%-WATER - 250 ML IVPB SCH (10:40)
[2020-07-30] MEDS: TAMSULOSIN HCL 0.4 MG CAP PO SCH (10:40)
[2020-07-30] MEDS: amLODIPine BESYLATE 10 MG TABLET (FP) PO SCH (10:40)
[2020-07-30] MEDS: CEFTRIAXONE 1 GM in DEXTROSE 5%-WATER - 50 ML IVPB SCH (10:44)
[2020-07-30] MEDS: SODIUM CHLORIDE 0.45% 1,000 ML IV SCH (10:45)
[2020-07-30] MEDS: LOSARTAN POTASSIUM 25 MG TABLET PO SCH (10:46)
[2020-07-30] MEDS: guaiFENesin/D-M SUGAR-FREE/ACLHOL-FREE 118 ML BOTTLE PO PRN (10:47)
[2020-07-30] MEDS ORDERED: POTASSIUM CHLORIDE TABS 20 MEQ TABLET.ER (FP) PO ONE (12:11)
[2020-07-30] MEDS: INSULIN (LEVEMIR) 100 UNITS/ML UNITS SQ SCH ×2 (13:15→22:48)
[2020-07-30] MEDS: PANTOPRAZOLE SODIUM 40 MG VIAL IVPUSH SCH (13:15)
[2020-07-30] MEDS: DEXAMETHASONE SOD PHOSPHATE 4 MG/1 ML VIAL IVPUSH SCH (13:43)
[2020-07-30] MEDS ORDERED: REMDESIVIR 200 MG in SODIUM CHLORIDE 210 ML IVPB ONE (15:00)
[2020-07-30] MEDS: ASCORBIC ACID 250 MG TABLET (FP) PO SCH (22:49)
[2020-07-31] MEDS: ACETAMINOPHEN 325 MG TABLET (FP) PO PRN (01:47)
[2020-07-31] MEDS: HEPARIN NA (PORCINE) 5,000 UNITS/ML 1ML VIAL SQ SCH ×3 (06:34→23:28)
[2020-07-31] MEDS: INSULIN SLIDING SCALE (NOVOLOG) 1 VIAL SQ SCH ×4 (06:35→23:30)
[2020-07-31] MEDS: INSULIN (LEVEMIR) 100 UNITS/ML UNITS SQ SCH ×2 (06:38→23:28)
[2020-07-31 08:35] LABS: BASO % 0.3 % (0-2.0); HEMATOCRIT 39.1 % (35.4-49); HEMOGLOBIN 12.5 GM/dL (11.7-16.9); LYMPH % 12.1 % (8-40); MCH 22.6 pg (25.7-33.7); MCHC 31.8 g/dl (32.0-35.9); MEAN CELL VOLUME 71.1 fl (80-96); MEAN PLT VOLUME 9.1 fl (7.5-11.1); MONO % 6.7 % (3.8-10.2); NEUT % 80.9 % (42.8-82.8); PLATELET COUNT 191 K/MM3 (134-434); RBC 5.51 M/mm3 (4.00-5.60); RDW 19.9 % (11.9-15.9); WHITE BLOOD COUNT 7.1 K/mm3 (4.0-10.0)
[2020-07-31 09:08] LABS: POTASSIUM 3.9 mmol/L (3.5-5.1)
[2020-07-31 09:15] LABS: ALBUMIN 2.5 g/dl (3.4-5.0); CALCIUM 8.5 mg/dL (8.5-10.1)
[2020-07-31 09:16] LABS: BLOOD UREA NITROGEN 18.8 mg/dL (7-18)
[2020-07-31 09:18] LABS: BILIRUBIN,TOTAL 0.4 mg/dL (0.2-1)
[2020-07-31 09:19] LABS: CREATININE 1.2 mg/dL (0.55-1.3); TOT PROT 6.3 g/dl (6.4-8.2)
[2020-07-31] MEDS: DEXAMETHASONE SOD PHOSPHATE 4 MG/1 ML VIAL IVPUSH SCH (10:55)
[2020-07-31] MEDS: amLODIPine BESYLATE 10 MG TABLET (FP) PO SCH (10:55)
[2020-07-31] MEDS: LOSARTAN POTASSIUM 25 MG TABLET PO SCH (10:55)
[2020-07-31] MEDS: PANTOPRAZOLE SODIUM 40 MG VIAL IVPUSH SCH (10:55)
[2020-07-31] MEDS: MULTIVITAMINS (DAILY MVI) TABLET (FP) PO SCH (10:55)
[2020-07-31] MEDS: ZINC SULFATE 220 MG CAPSULE (FP) PO SCH (10:55)
[2020-07-31] MEDS: TAMSULOSIN HCL 0.4 MG CAP PO SCH (10:55)
[2020-07-31] MEDS: ASCORBIC ACID 250 MG TABLET (FP) PO SCH ×2 (10:56→23:30)
[2020-07-31] MEDS ORDERED: INSULIN (NOVOLOG) ASPART 100 UNITS/ML 10ML VIAL ONE ×2 (11:01→22:27)
[2020-07-31] MEDS: REMDESIVIR 100 MG in SODIUM CHLORIDE 230 ML IVPB SCH (14:29)
[2020-07-31] MEDS: FAMOTIDINE 20 MG TABLET PO SCH ×2 (14:29→23:29)
[2020-07-31] MEDS ORDERED: PT OWN MED DRAWER 7, Y5N ONE (22:29)
[2020-08-01] MEDS: HEPARIN NA (PORCINE) 5,000 UNITS/ML 1ML VIAL SQ SCH ×3 (07:04→21:48)
[2020-08-01] MEDS: INSULIN SLIDING SCALE (NOVOLOG) 1 VIAL SQ SCH ×4 (07:04→21:56)
[2020-08-01 07:59] LABS: BASO % 0.2 % (0-2.0); HEMATOCRIT 40.3 % (35.4-49); HEMOGLOBIN 12.6 GM/dL (11.7-16.9); LYMPH % 9.1 % (8-40); MCH 22.2 pg (25.7-33.7); MCHC 31.2 g/dl (32.0-35.9); MEAN CELL VOLUME 71.3 fl (80-96); MONO % 7.4 % (3.8-10.2); NEUT % 83.3 % (42.8-82.8); PLATELET COUNT 232 K/MM3 (134-434); RBC 5.66 M/mm3 (4.00-5.60); RDW 19.7 % (11.9-15.9); WHITE BLOOD COUNT 11.7 K/mm3 (4.0-10.0)
[2020-08-01 08:17] LABS: POTASSIUM 4.2 mmol/L (3.5-5.1)
[2020-08-01 08:19] LABS: BLOOD UREA NITROGEN 24.1 mg/dL (7-18); CALCIUM 8.5 mg/dL (8.5-10.1)
[2020-08-01 08:23] LABS: CREATININE 1.3 mg/dL (0.55-1.3)
[2020-08-01] MEDS: INSULIN (LEVEMIR) 100 UNITS/ML UNITS SQ SCH ×2 (08:25→21:56)
[2020-08-01] MEDS: TAMSULOSIN HCL 0.4 MG CAP PO SCH (09:24)
[2020-08-01] MEDS: LOSARTAN POTASSIUM 25 MG TABLET PO SCH (09:25)
[2020-08-01] MEDS: MULTIVITAMINS (DAILY MVI) TABLET (FP) PO SCH (09:27)
[2020-08-01] MEDS: amLODIPine BESYLATE 10 MG TABLET (FP) PO SCH (09:27)
[2020-08-01] MEDS: ZINC SULFATE 220 MG CAPSULE (FP) PO SCH (09:28)
[2020-08-01] MEDS: FAMOTIDINE 20 MG TABLET PO SCH ×2 (09:39→21:47)
[2020-08-01] MEDS: DEXAMETHASONE SOD PHOSPHATE 4 MG/1 ML VIAL IVPUSH SCH (10:08)
[2020-08-01] MEDS: ASCORBIC ACID 250 MG TABLET (FP) PO SCH ×2 (10:23→21:46)
[2020-08-01] MEDS ORDERED: INSULIN (NOVOLOG) ASPART 100 UNITS/ML 10ML VIAL ONE (11:47)
[2020-08-01] MEDS ORDERED: PT OWN MED DRAWER 7, Y5N ONE ×2 (13:55→21:39)
[2020-08-01] MEDS: REMDESIVIR 100 MG in SODIUM CHLORIDE 230 ML IVPB SCH (14:48)
[2020-08-01] MEDS: guaiFENesin/D-M SUGAR-FREE/ACLHOL-FREE 118 ML BOTTLE PO PRN (23:04)
[2020-08-02] MEDS: HEPARIN NA (PORCINE) 5,000 UNITS/ML 1ML VIAL SQ SCH ×3 (05:56→22:39)
[2020-08-02] MEDS: INSULIN SLIDING SCALE (NOVOLOG) 1 VIAL SQ SCH ×4 (06:18→22:47)
[2020-08-02] MEDS: INSULIN (LEVEMIR) 100 UNITS/ML UNITS SQ SCH ×2 (06:29→22:39)
[2020-08-02] MEDS ORDERED: INSULIN (NOVOLOG) ASPART 100 UNITS/ML 10ML VIAL ONE ×3 (06:32→17:06)
[2020-08-02] MEDS ORDERED: PT OWN MED DRAWER 7, Y5N ONE ×2 (06:33→10:32)
[2020-08-02] MEDS: TAMSULOSIN HCL 0.4 MG CAP PO SCH (07:58)
[2020-08-02 09:08] LABS: BASO % 0.4 % (0-2.0); HEMATOCRIT 41.4 % (35.4-49); HEMOGLOBIN 12.8 GM/dL (11.7-16.9); LYMPH % 7.7 % (8-40); MCHC 30.9 g/dl (32.0-35.9); MEAN CELL VOLUME 71.2 fl (80-96); MEAN PLT VOLUME 8.5 fl (7.5-11.1); MONO % 8.9 % (3.8-10.2); PLATELET COUNT 282 K/MM3 (134-434); RBC 5.82 M/mm3 (4.00-5.60); RDW 19.8 % (11.9-15.9); WHITE BLOOD COUNT 12.4 K/mm3 (4.0-10.0)
[2020-08-02 09:19] LABS: POTASSIUM 4.1 mmol/L (3.5-5.1)
[2020-08-02 09:21] LABS: CALCIUM 8.1 mg/dL (8.5-10.1)
[2020-08-02 09:25] LABS: CREATININE 1.2 mg/dL (0.55-1.3)
[2020-08-02] MEDS ORDERED: ASPIRIN COATED 81 MG TABLET.EC PO SCH (10:00)
[2020-08-02 10:25] LABS: ANISOCYTOSIS 0; MACROCYTOSIS 0; PLATELET ESTIMATE NORMAL
[2020-08-02] MEDS: DEXAMETHASONE SOD PHOSPHATE 4 MG/1 ML VIAL IVPUSH SCH (10:46)
[2020-08-02] MEDS: LOSARTAN POTASSIUM 25 MG TABLET PO SCH (10:46)
[2020-08-02] MEDS: MULTIVITAMINS (DAILY MVI) TABLET (FP) PO SCH (10:46)
[2020-08-02] MEDS: ASCORBIC ACID 250 MG TABLET (FP) PO SCH ×2 (10:47→22:39)
[2020-08-02] MEDS: FAMOTIDINE 20 MG TABLET PO SCH ×2 (10:47→22:39)
[2020-08-02] MEDS: amLODIPine BESYLATE 10 MG TABLET (FP) PO SCH (10:47)
[2020-08-02] MEDS: ZINC SULFATE 220 MG CAPSULE (FP) PO SCH (10:47)
[2020-08-02 14:32] LABS: POTASSIUM 4.3 mmol/L (3.5-5.1)
[2020-08-02 14:34] LABS: CALCIUM 8.1 mg/dL (8.5-10.1)
[2020-08-02 14:35] LABS: ALBUMIN 2.4 g/dl (3.4-5.0); BLOOD UREA NITROGEN 33.8 mg/dL (7-18)
[2020-08-02 14:38] LABS: CREATININE 1.4 mg/dL (0.55-1.3)
[2020-08-02 14:39] LABS: BILIRUBIN,TOTAL 0.3 mg/dL (0.2-1); TOT PROT 6.2 g/dl (6.4-8.2)
[2020-08-02] MEDS: REMDESIVIR 100 MG in SODIUM CHLORIDE 230 ML IVPB SCH (15:24)
[2020-08-02 18:05] LABS: BILIRUBIN,DIRECT 0.2 mg/dL (0.0-0.2)
[2020-08-02] MEDS ORDERED: guaiFENesin/D-M SUGAR-FREE/ACLHOL-FREE 118 ML BOTTLE PO PRN (23:36)
[2020-08-02] MEDS ORDERED: ACETAMINOPHEN 325 MG TABLET (FP) PO PRN (23:36)
[2020-08-03] MEDS: INSULIN SLIDING SCALE (NOVOLOG) 1 VIAL SQ SCH ×4 (06:29→22:40)
[2020-08-03] MEDS: HEPARIN NA (PORCINE) 5,000 UNITS/ML 1ML VIAL SQ SCH ×3 (06:29→22:26)
[2020-08-03] MEDS ORDERED: INSULIN (LEVEMIR) 100 UNITS/ML UNITS SQ SCH ×2 (07:00→12:15)
[2020-08-03 09:15] LABS: BASO % 0.3 % (0-2.0); HEMATOCRIT 42.3 % (35.4-49); HEMOGLOBIN 13.5 GM/dL (11.7-16.9); LYMPH % 5.6 % (8-40); MCHC 31.8 g/dl (32.0-35.9); MEAN CELL VOLUME 72.4 fl (80-96); MEAN PLT VOLUME 8.5 fl (7.5-11.1); MONO % 8.1 % (3.8-10.2); PLATELET COUNT 323 K/MM3 (134-434); RBC 5.85 M/mm3 (4.00-5.60); RDW 19.8 % (11.9-15.9)
[2020-08-03 09:36] LABS: POTASSIUM 4.6 mmol/L (3.5-5.1)
[2020-08-03 09:38] LABS: ALBUMIN 2.4 g/dl (3.4-5.0); CALCIUM 8.2 mg/dL (8.5-10.1); MAGNESIUM 2.3 mg/dL (1.8-2.4)
[2020-08-03 09:42] LABS: CREATININE 1.3 mg/dL (0.55-1.3)
[2020-08-03 09:43] LABS: BILIRUBIN,TOTAL 0.4 mg/dL (0.2-1); TOT PROT 6.2 g/dl (6.4-8.2)
[2020-08-03 09:49] LABS: ANISOCYTOSIS 1+; MACROCYTOSIS 0; PLATELET ESTIMATE NORMAL
[2020-08-03] MEDS: DEXAMETHASONE SOD PHOSPHATE 4 MG/1 ML VIAL IVPUSH SCH (09:55)
[2020-08-03] MEDS: ZINC SULFATE 220 MG CAPSULE (FP) PO SCH (09:55)
[2020-08-03] MEDS: MULTIVITAMINS (DAILY MVI) TABLET (FP) PO SCH (09:56)
[2020-08-03] MEDS: TAMSULOSIN HCL 0.4 MG CAP PO SCH (09:56)
[2020-08-03] MEDS: FAMOTIDINE 20 MG TABLET PO SCH ×2 (09:56→22:25)
[2020-08-03] MEDS: ASCORBIC ACID 250 MG TABLET (FP) PO SCH ×2 (09:56→22:25)
[2020-08-03] MEDS: amLODIPine BESYLATE 10 MG TABLET (FP) PO SCH (09:56)
[2020-08-03] MEDS: ASPIRIN COATED 81 MG TABLET.EC PO SCH (09:56)
[2020-08-03] MEDS ORDERED: PATIENT'S OWN MEDICATION (NON-FORMULARY) (Mirabegron [Myrbetriq] 50 MG) PO SCH (10:00)
[2020-08-03] MEDS ORDERED: REMDESIVIR 100 MG in SODIUM CHLORIDE 230 ML IVPB SCH (15:00)
[2020-08-03] MEDS ORDERED: INSULIN (NOVOLOG) ASPART 100 UNITS/ML 10ML VIAL ONE (22:19)
[2020-08-04] MEDS: HEPARIN NA (PORCINE) 5,000 UNITS/ML 1ML VIAL SQ SCH ×3 (07:20→21:49)
[2020-08-04 07:25] LABS: BASO % 0.1 % (0-2.0); HEMATOCRIT 41.2 % (35.4-49); HEMOGLOBIN 12.9 GM/dL (11.7-16.9); LYMPH % 5.6 % (8-40); MCH 22.4 pg (25.7-33.7); MCHC 31.4 g/dl (32.0-35.9); MEAN CELL VOLUME 71.2 fl (80-96); MEAN PLT VOLUME 8.4 fl (7.5-11.1); MONO % 6.5 % (3.8-10.2); NEUT % 87.8 % (42.8-82.8); PLATELET COUNT 352 K/MM3 (134-434); RBC 5.78 M/mm3 (4.00-5.60); RDW 19.8 % (11.9-15.9); WHITE BLOOD COUNT 16.3 K/mm3 (4.0-10.0)
[2020-08-04 08:01] LABS: POTASSIUM 4.7 mmol/L (3.5-5.1)
[2020-08-04 08:19] LABS: CALCIUM 8.4 mg/dL (8.5-10.1)
[2020-08-04 08:20] LABS: ALBUMIN 2.4 g/dl (3.4-5.0); MAGNESIUM 2.7 mg/dL (1.8-2.4)
[2020-08-04 08:23] LABS: CREATININE 1.3 mg/dL (0.55-1.3)
[2020-08-04 08:24] LABS: BILIRUBIN,TOTAL 0.5 mg/dL (0.2-1)
[2020-08-04 08:25] LABS: TOT PROT 6.3 g/dl (6.4-8.2)
[2020-08-04] MEDS: DEXAMETHASONE SOD PHOSPHATE 4 MG/1 ML VIAL IVPUSH SCH (10:47)
[2020-08-04] MEDS: ASCORBIC ACID 250 MG TABLET (FP) PO SCH ×2 (10:49→21:49)
[2020-08-04] MEDS: TAMSULOSIN HCL 0.4 MG CAP PO SCH (10:50)
[2020-08-04] MEDS: MULTIVITAMINS (DAILY MVI) TABLET (FP) PO SCH (10:50)
[2020-08-04] MEDS: amLODIPine BESYLATE 10 MG TABLET (FP) PO SCH (10:50)
[2020-08-04] MEDS: ASPIRIN COATED 81 MG TABLET.EC PO SCH (10:50)
[2020-08-04] MEDS: ZINC SULFATE 220 MG CAPSULE (FP) PO SCH (10:50)
[2020-08-04] MEDS: INSULIN SLIDING SCALE (NOVOLOG) 1 VIAL SQ SCH ×3 (11:15→21:50)
[2020-08-04] MEDS: FAMOTIDINE 20 MG TABLET PO SCH ×2 (11:41→21:49)
[2020-08-04 11:55] LABS: ANISOCYTOSIS 0; MACROCYTOSIS 0; PLATELET ESTIMATE NORMAL
[2020-08-04] MEDS: REMDESIVIR 100 MG in SODIUM CHLORIDE 230 ML IVPB SCH (13:43)
[2020-08-04] MEDS: INSULIN (LEVEMIR) 100 UNITS/ML UNITS SQ SCH (21:50)
[2020-08-05] MEDS: HEPARIN NA (PORCINE) 5,000 UNITS/ML 1ML VIAL SQ SCH ×3 (06:10→21:38)
[2020-08-05] MEDS: INSULIN (LEVEMIR) 100 UNITS/ML UNITS SQ SCH ×2 (06:16→21:39)
[2020-08-05] MEDS: INSULIN SLIDING SCALE (NOVOLOG) 1 VIAL SQ SCH ×4 (06:17→21:39)
[2020-08-05 07:00] LABS: BASO % 0.1 % (0-2.0); HEMATOCRIT 40.1 % (35.4-49); HEMOGLOBIN 12.7 GM/dL (11.7-16.9); LYMPH % 6.1 % (8-40); MCH 22.4 pg (25.7-33.7); MCHC 31.6 g/dl (32.0-35.9); MEAN CELL VOLUME 70.8 fl (80-96); MONO % 4.1 % (3.8-10.2); NEUT % 89.7 % (42.8-82.8); PLATELET COUNT 426 K/MM3 (134-434); RBC 5.67 M/mm3 (4.00-5.60); WHITE BLOOD COUNT 19.4 K/mm3 (4.0-10.0)
[2020-08-05 07:20] LABS: ALBUMIN 2.2 g/dl (3.4-5.0)
[2020-08-05 07:22] LABS: BILIRUBIN,TOTAL 0.5 mg/dL (0.2-1); TOT PROT 6.2 g/dl (6.4-8.2)
[2020-08-05 07:23] LABS: BILIRUBIN,DIRECT 0.2 mg/dL (0.0-0.2)
[2020-08-05] MEDS: MULTIVITAMINS (DAILY MVI) TABLET (FP) PO SCH (10:46)
[2020-08-05] MEDS: TAMSULOSIN HCL 0.4 MG CAP PO SCH (10:46)
[2020-08-05] MEDS: FAMOTIDINE 20 MG TABLET PO SCH ×2 (10:46→21:38)
[2020-08-05] MEDS: ZINC SULFATE 220 MG CAPSULE (FP) PO SCH (10:46)
[2020-08-05] MEDS: amLODIPine BESYLATE 10 MG TABLET (FP) PO SCH (10:46)
[2020-08-05] MEDS: ASCORBIC ACID 250 MG TABLET (FP) PO SCH ×2 (10:46→21:41)
[2020-08-05] MEDS: ASPIRIN COATED 81 MG TABLET.EC PO SCH (10:46)
[2020-08-05] MEDS ORDERED: INSULIN (NOVOLOG) ASPART 100 UNITS/ML 10ML VIAL ONE (11:02)
[2020-08-05] MEDS: DEXAMETHASONE SOD PHOSPHATE 4 MG/1 ML VIAL IVPUSH SCH (11:17)
[2020-08-05 11:55] LABS: ANISOCYTOSIS 1+; MACROCYTOSIS 0; PLATELET ESTIMATE NORMAL
[2020-08-05] MEDS: REMDESIVIR 100 MG in SODIUM CHLORIDE 230 ML IVPB SCH (12:11)
[2020-08-06] MEDS: HEPARIN NA (PORCINE) 5,000 UNITS/ML 1ML VIAL SQ SCH ×3 (06:02→22:29)
[2020-08-06] MEDS: INSULIN (LEVEMIR) 100 UNITS/ML UNITS SQ SCH ×2 (06:21→22:28)
[2020-08-06] MEDS: INSULIN SLIDING SCALE (NOVOLOG) 1 VIAL SQ SCH ×4 (06:22→22:29)
[2020-08-06 07:36] LABS: HEMATOCRIT 40.3 % (35.4-49); HEMOGLOBIN 12.8 GM/dL (11.7-16.9); MCH 22.5 pg (25.7-33.7); MCHC 31.9 g/dl (32.0-35.9); MEAN CELL VOLUME 70.7 fl (80-96); MEAN PLT VOLUME 7.4 fl (7.5-11.1); PLATELET COUNT 490 K/MM3 (134-434); RBC 5.69 M/mm3 (4.00-5.60); RDW 20.2 % (11.9-15.9); WHITE BLOOD COUNT 18.5 K/mm3 (4.0-10.0)
[2020-08-06 07:48] LABS: POTASSIUM 4.7 mmol/L (3.5-5.1)
[2020-08-06 08:00] LABS: ALBUMIN 2.3 g/dl (3.4-5.0)
[2020-08-06 08:01] LABS: BLOOD UREA NITROGEN 28.3 mg/dL (7-18); CALCIUM 8.4 mg/dL (8.5-10.1); MAGNESIUM 2.8 mg/dL (1.8-2.4)
[2020-08-06 08:03] LABS: CREATININE 1.2 mg/dL (0.55-1.3)
[2020-08-06 08:04] LABS: PHOSPHOROUS 4.8 mg/dL (2.5-4.9)
[2020-08-06 08:05] LABS: BILIRUBIN,TOTAL 0.7 mg/dL (0.2-1); TOT PROT 6.2 g/dl (6.4-8.2)
[2020-08-06] MEDS: ASCORBIC ACID 250 MG TABLET (FP) PO SCH ×2 (09:40→22:26)
[2020-08-06] MEDS: ZINC SULFATE 220 MG CAPSULE (FP) PO SCH (09:40)
[2020-08-06] MEDS: DEXAMETHASONE SOD PHOSPHATE 4 MG/1 ML VIAL IVPUSH SCH (09:40)
[2020-08-06] MEDS: amLODIPine BESYLATE 10 MG TABLET (FP) PO SCH (09:40)
[2020-08-06] MEDS: MULTIVITAMINS (DAILY MVI) TABLET (FP) PO SCH (09:40)
[2020-08-06] MEDS: ASPIRIN COATED 81 MG TABLET.EC PO SCH (09:41)
[2020-08-06] MEDS: FAMOTIDINE 20 MG TABLET PO SCH ×2 (09:41→22:26)
[2020-08-06] MEDS: TAMSULOSIN HCL 0.4 MG CAP PO SCH (09:41)
[2020-08-06] MEDS: REMDESIVIR 100 MG in SODIUM CHLORIDE 230 ML IVPB SCH (11:58)
[2020-08-07] MEDS: INSULIN SLIDING SCALE (NOVOLOG) 1 VIAL SQ SCH ×4 (06:10→22:15)
[2020-08-07] MEDS: HEPARIN NA (PORCINE) 5,000 UNITS/ML 1ML VIAL SQ SCH ×3 (06:16→22:10)
[2020-08-07] MEDS: INSULIN (LEVEMIR) 100 UNITS/ML UNITS SQ SCH ×2 (06:16→22:16)
[2020-08-07 07:19] LABS: BASO % 0.2 % (0-2.0); HEMATOCRIT 42.5 % (35.4-49); HEMOGLOBIN 13.6 GM/dL (11.7-16.9); LYMPH % 4.5 % (8-40); MCH 22.9 pg (25.7-33.7); MEAN CELL VOLUME 71.4 fl (80-96); MEAN PLT VOLUME 7.7 fl (7.5-11.1); MONO % 3.2 % (3.8-10.2); NEUT % 92.1 % (42.8-82.8); PLATELET COUNT 528 K/MM3 (134-434); RBC 5.95 M/mm3 (4.00-5.60); RDW 20.3 % (11.9-15.9); WHITE BLOOD COUNT 18.9 K/mm3 (4.0-10.0)
[2020-08-07 07:46] LABS: POTASSIUM 4.5 mmol/L (3.5-5.1)
[2020-08-07 08:06] LABS: ALBUMIN 2.2 g/dl (3.4-5.0); BLOOD UREA NITROGEN 28.5 mg/dL (7-18); CALCIUM 8.2 mg/dL (8.5-10.1)
[2020-08-07 08:07] LABS: MAGNESIUM 2.7 mg/dL (1.8-2.4)
[2020-08-07 08:09] LABS: CREATININE 1.2 mg/dL (0.55-1.3); PHOSPHOROUS 4.7 mg/dL (2.5-4.9)
[2020-08-07 08:10] LABS: BILIRUBIN,TOTAL 0.6 mg/dL (0.2-1)
[2020-08-07 08:11] LABS: TOT PROT 6.4 g/dl (6.4-8.2)
[2020-08-07 08:22] LABS: ANISOCYTOSIS 1+; MACROCYTOSIS 0; PLATELET ESTIMATE INCREASED
[2020-08-07] MEDS: ASPIRIN COATED 81 MG TABLET.EC PO SCH (09:27)
[2020-08-07] MEDS: TAMSULOSIN HCL 0.4 MG CAP PO SCH (09:27)
[2020-08-07] MEDS: DEXAMETHASONE SOD PHOSPHATE 4 MG/1 ML VIAL IVPUSH SCH (09:27)
[2020-08-07] MEDS: ASCORBIC ACID 250 MG TABLET (FP) PO SCH ×2 (09:28→22:10)
[2020-08-07] MEDS: amLODIPine BESYLATE 10 MG TABLET (FP) PO SCH (09:28)
[2020-08-07] MEDS: MULTIVITAMINS (DAILY MVI) TABLET (FP) PO SCH (09:28)
[2020-08-07] MEDS: ZINC SULFATE 220 MG CAPSULE (FP) PO SCH (09:28)
[2020-08-07] MEDS: FAMOTIDINE 20 MG TABLET PO SCH ×2 (09:28→22:10)
[2020-08-07] MEDS: REMDESIVIR 100 MG in SODIUM CHLORIDE 230 ML IVPB SCH (12:58)
[2020-08-07] MEDS ORDERED: INSULIN (NOVOLOG) ASPART 100 UNITS/ML 10ML VIAL ONE (22:07)
[2020-08-08] MEDS: HEPARIN NA (PORCINE) 5,000 UNITS/ML 1ML VIAL SQ SCH (06:35)
[2020-08-08] MEDS: INSULIN SLIDING SCALE (NOVOLOG) 1 VIAL SQ SCH ×4 (06:36→22:02)
[2020-08-08] MEDS: INSULIN (LEVEMIR) 100 UNITS/ML UNITS SQ SCH ×2 (06:37→22:04)
[2020-08-08 07:11] LABS: BASO % 0.1 % (0-2.0); HEMATOCRIT 43.7 % (35.4-49); HEMOGLOBIN 14.1 GM/dL (11.7-16.9); LYMPH % 4.7 % (8-40); MCH 22.7 pg (25.7-33.7); MCHC 32.2 g/dl (32.0-35.9); MEAN CELL VOLUME 70.4 fl (80-96); MEAN PLT VOLUME 7.8 fl (7.5-11.1); MONO % 1.8 % (3.8-10.2); NEUT % 93.4 % (42.8-82.8); PLATELET COUNT 497 K/MM3 (134-434); WHITE BLOOD COUNT 21.3 K/mm3 (4.0-10.0)
[2020-08-08 07:35] LABS: POTASSIUM 5.2 mmol/L (3.5-5.1)
[2020-08-08 08:02] LABS: ALBUMIN 2.2 g/dl (3.4-5.0); CALCIUM 8.2 mg/dL (8.5-10.1)
[2020-08-08 08:04] LABS: ERYTHROCYTE SEDIMENTATION RATE 29 mm/hr (0-20)
[2020-08-08 08:06] LABS: CREATININE 1.2 mg/dL (0.55-1.3)
[2020-08-08 08:07] LABS: BILIRUBIN,TOTAL 0.9 mg/dL (0.2-1); TOT PROT 6.4 g/dl (6.4-8.2)
[2020-08-08 09:01] LABS: ANISOCYTOSIS 1+; MACROCYTOSIS 0; PLATELET ESTIMATE INCREASED
[2020-08-08] MEDS ORDERED: SODIUM ZIRCONIUM CYCLOSILICATE (LOKELMA) 5 GM PACKET PO ONE (09:17)
[2020-08-08] MEDS: amLODIPine BESYLATE 10 MG TABLET (FP) PO SCH (09:52)
[2020-08-08] MEDS: ASCORBIC ACID 250 MG TABLET (FP) PO SCH ×2 (09:52→22:06)
[2020-08-08] MEDS: DEXAMETHASONE SOD PHOSPHATE 4 MG/1 ML VIAL IVPUSH SCH (09:52)
[2020-08-08] MEDS: MULTIVITAMINS (DAILY MVI) TABLET (FP) PO SCH (09:52)
[2020-08-08] MEDS: ASPIRIN COATED 81 MG TABLET.EC PO SCH (09:52)
[2020-08-08] MEDS: ZINC SULFATE 220 MG CAPSULE (FP) PO SCH (09:52)
[2020-08-08] MEDS: FAMOTIDINE 20 MG TABLET PO SCH ×2 (09:52→22:06)
[2020-08-08] MEDS: TAMSULOSIN HCL 0.4 MG CAP PO SCH (09:52)
[2020-08-08] MEDS ORDERED: DEXTROSE 5%-0.45% SALINE 1,000 ML IV SCH (16:00)
[2020-08-08] MEDS ORDERED: DEXTROSE 5%-WATER - 50 ML IVPB ONE (17:46)
[2020-08-08] MEDS ORDERED: cefTRIAXone SODIUM 1 GM VIAL ONE (17:46)
[2020-08-08] MEDS: CEFTRIAXONE 1 GM in DEXTROSE 5%-WATER - 50 ML IVPB SCH (17:53)
[2020-08-08] MEDS ORDERED: INSULIN (NOVOLOG) ASPART 100 UNITS/ML 10ML VIAL ONE (22:00)
[2020-08-08] MEDS: ENOXAPARIN NA (PORCINE) 80 MG/0.8 ML DISP.SYRIN SQ SCH (22:06)
[2020-08-09] MEDS: INSULIN (LEVEMIR) 100 UNITS/ML UNITS SQ SCH ×2 (06:57→22:56)
[2020-08-09] MEDS: INSULIN SLIDING SCALE (NOVOLOG) 1 VIAL SQ SCH ×4 (06:57→22:57)
[2020-08-09 07:51] LABS: POTASSIUM 4.4 mmol/L (3.5-5.1)
[2020-08-09 07:59] LABS: ALBUMIN 2.2 g/dl (3.4-5.0); BLOOD UREA NITROGEN 27.4 mg/dL (7-18); CALCIUM 8.1 mg/dL (8.5-10.1)
[2020-08-09 08:02] LABS: CREATININE 1.2 mg/dL (0.55-1.3)
[2020-08-09 08:03] LABS: BILIRUBIN,TOTAL 0.6 mg/dL (0.2-1)
[2020-08-09] MEDS: TAMSULOSIN HCL 0.4 MG CAP PO SCH (08:48)
[2020-08-09] MEDS ORDERED: cefTRIAXone SODIUM 1 GM VIAL ONE (09:42)
[2020-08-09] MEDS ORDERED: DEXTROSE 5%-WATER - 50 ML IVPB ONE (09:43)
[2020-08-09 09:49] LABS: ERYTHROCYTE SEDIMENTATION RATE 34 mm/hr (0-20)
[2020-08-09 09:53] LABS: HEMATOCRIT 41.9 % (35.4-49); HEMOGLOBIN 13.2 GM/dL (11.7-16.9); MCH 22.4 pg (25.7-33.7); MCHC 31.6 g/dl (32.0-35.9); MEAN PLT VOLUME 7.8 fl (7.5-11.1); PLATELET COUNT 460 K/MM3 (134-434); RDW 20.2 % (11.9-15.9); WHITE BLOOD COUNT 21.6 K/mm3 (4.0-10.0)
[2020-08-09] MEDS: DEXAMETHASONE SOD PHOSPHATE 4 MG/1 ML VIAL IVPUSH SCH (10:00)
[2020-08-09] MEDS: amLODIPine BESYLATE 10 MG TABLET (FP) PO SCH (10:00)
[2020-08-09] MEDS: ASPIRIN COATED 81 MG TABLET.EC PO SCH (10:00)
[2020-08-09] MEDS: ENOXAPARIN NA (PORCINE) 80 MG/0.8 ML DISP.SYRIN SQ SCH ×2 (10:00→22:57)
[2020-08-09] MEDS: FAMOTIDINE 20 MG TABLET PO SCH ×2 (10:01→22:57)
[2020-08-09] MEDS: ASCORBIC ACID 250 MG TABLET (FP) PO SCH ×2 (10:01→22:57)
[2020-08-09] MEDS: CEFTRIAXONE 1 GM in DEXTROSE 5%-WATER - 50 ML IVPB SCH (10:01)
[2020-08-09] MEDS: ZINC SULFATE 220 MG CAPSULE (FP) PO SCH (10:01)
[2020-08-09] MEDS: MULTIVITAMINS (DAILY MVI) TABLET (FP) PO SCH (10:01)
[2020-08-09 10:10] LABS: MAGNESIUM 2.6 mg/dL (1.8-2.4); PHOSPHOROUS 4.2 mg/dL (2.5-4.9)
[2020-08-10] MEDS: INSULIN SLIDING SCALE (NOVOLOG) 1 VIAL SQ SCH ×4 (06:10→23:24)
[2020-08-10] MEDS: INSULIN (LEVEMIR) 100 UNITS/ML UNITS SQ SCH ×2 (06:10→23:24)
[2020-08-10 06:48] LABS: BASO % 0.2 % (0-2.0); EOS % 0.1 % (0-4.5); HEMATOCRIT 42.4 % (35.4-49); HEMOGLOBIN 13.7 GM/dL (11.7-16.9); LYMPH % 4.1 % (8-40); MCH 22.6 pg (25.7-33.7); MCHC 32.2 g/dl (32.0-35.9); MEAN CELL VOLUME 70.2 fl (80-96); MEAN PLT VOLUME 7.6 fl (7.5-11.1); MONO % 3.1 % (3.8-10.2); NEUT % 92.5 % (42.8-82.8); PLATELET COUNT 435 K/MM3 (134-434); RBC 6.05 M/mm3 (4.00-5.60); RDW 20.5 % (11.9-15.9); WHITE BLOOD COUNT 20.9 K/mm3 (4.0-10.0)
[2020-08-10] MEDS: TAMSULOSIN HCL 0.4 MG CAP PO SCH (08:01)
[2020-08-10 08:03] LABS: BLOOD UREA NITROGEN 29.8 mg/dL (7-18); CALCIUM 8.4 mg/dL (8.5-10.1)
[2020-08-10 08:05] LABS: CREATININE 1.2 mg/dL (0.55-1.3)
[2020-08-10 08:16] LABS: ERYTHROCYTE SEDIMENTATION RATE 25 mm/hr (0-20)
[2020-08-10] MEDS ORDERED: cefTRIAXone SODIUM 1 GM VIAL ONE (09:08)
[2020-08-10] MEDS ORDERED: DEXTROSE 5%-WATER - 50 ML IVPB ONE (09:09)
[2020-08-10] MEDS: CEFTRIAXONE 1 GM in DEXTROSE 5%-WATER - 50 ML IVPB SCH (09:15)
[2020-08-10] MEDS: ENOXAPARIN NA (PORCINE) 80 MG/0.8 ML DISP.SYRIN SQ SCH ×2 (09:17→23:24)
[2020-08-10] MEDS: DEXAMETHASONE SOD PHOSPHATE 4 MG/1 ML VIAL IVPUSH SCH (09:19)
[2020-08-10] MEDS: amLODIPine BESYLATE 10 MG TABLET (FP) PO SCH (09:20)
[2020-08-10] MEDS: MULTIVITAMINS (DAILY MVI) TABLET (FP) PO SCH (09:20)
[2020-08-10] MEDS: ASPIRIN COATED 81 MG TABLET.EC PO SCH (09:20)
[2020-08-10] MEDS: ASCORBIC ACID 250 MG TABLET (FP) PO SCH ×2 (09:20→23:24)
[2020-08-10] MEDS: FAMOTIDINE 20 MG TABLET PO SCH ×2 (09:21→23:24)
[2020-08-10] MEDS: ZINC SULFATE 220 MG CAPSULE (FP) PO SCH (09:21)
[2020-08-10 12:04] LABS: ANISOCYTOSIS 1+; TARGET CELLS 2+
[2020-08-11 07:17] LABS: BASO % 0.2 % (0-2.0); HEMOGLOBIN 13.7 GM/dL (11.7-16.9); LYMPH % 3.8 % (8-40); MCH 22.4 pg (25.7-33.7); MCHC 31.7 g/dl (32.0-35.9); MEAN CELL VOLUME 70.7 fl (80-96); MEAN PLT VOLUME 7.5 fl (7.5-11.1); MONO % 3.4 % (3.8-10.2); NEUT % 92.6 % (42.8-82.8); PLATELET COUNT 409 K/MM3 (134-434); RBC 6.09 M/mm3 (4.00-5.60); RDW 19.9 % (11.9-15.9); WHITE BLOOD COUNT 22.2 K/mm3 (4.0-10.0)
[2020-08-11] MEDS: INSULIN (LEVEMIR) 100 UNITS/ML UNITS SQ SCH ×2 (07:45→22:05)
[2020-08-11] MEDS: INSULIN SLIDING SCALE (NOVOLOG) 1 VIAL SQ SCH ×4 (07:46→22:11)
[2020-08-11 07:56] LABS: POTASSIUM 4.8 mmol/L (3.5-5.1)
[2020-08-11 08:07] LABS: ALBUMIN 2.2 g/dl (3.4-5.0); BLOOD UREA NITROGEN 31.6 mg/dL (7-18); CALCIUM 8.5 mg/dL (8.5-10.1)
[2020-08-11 08:10] LABS: BILIRUBIN,TOTAL 0.4 mg/dL (0.2-1); CREATININE 1.1 mg/dL (0.55-1.3); TOT PROT 6.2 g/dl (6.4-8.2)
[2020-08-11] MEDS ORDERED: DEXTROSE 5%-WATER - 50 ML IVPB ONE (08:59)
[2020-08-11] MEDS ORDERED: cefTRIAXone SODIUM 1 GM VIAL ONE (08:59)
[2020-08-11] MEDS: DEXAMETHASONE SOD PHOSPHATE 4 MG/1 ML VIAL IVPUSH SCH (09:07)
[2020-08-11] MEDS: CEFTRIAXONE 1 GM in DEXTROSE 5%-WATER - 50 ML IVPB SCH (09:07)
[2020-08-11] MEDS: amLODIPine BESYLATE 10 MG TABLET (FP) PO SCH (09:08)
[2020-08-11] MEDS: FAMOTIDINE 20 MG TABLET PO SCH ×2 (09:08→22:11)
[2020-08-11] MEDS: TAMSULOSIN HCL 0.4 MG CAP PO SCH (09:08)
[2020-08-11] MEDS: ENOXAPARIN NA (PORCINE) 80 MG/0.8 ML DISP.SYRIN SQ SCH ×2 (09:08→22:06)
[2020-08-11] MEDS: ASPIRIN COATED 81 MG TABLET.EC PO SCH (09:08)
[2020-08-11] MEDS: ASCORBIC ACID 250 MG TABLET (FP) PO SCH ×2 (09:08→22:12)
[2020-08-11] MEDS: MULTIVITAMINS (DAILY MVI) TABLET (FP) PO SCH (09:08)
[2020-08-11] MEDS: ZINC SULFATE 220 MG CAPSULE (FP) PO SCH (09:08)
[2020-08-11 09:30] LABS: ANISOCYTOSIS 1+; MACROCYTOSIS 0; PLATELET ESTIMATE NORMAL
[2020-08-11 21:55] LABS: EPI CELLS 4 /uL (0-25.1); HYALINE CASTS 5 /uL (0-3.1); URINE APPEARANCE CLEAR; URINE BACTERIA 2 /uL (0-1359); URINE BILIRUBIN NEGATIVE (NEGATIVE); URINE COLOR YELLOW; URINE GLUCOSE (UA) 2+ (NEGATIVE); URINE KETONE NEGATIVE (NEGATIVE); URINE LEUK ESTERASE NEGATIVE (NEGATIVE); URINE NITRITE NEGATIVE (NEGATIVE); URINE PROTEIN 2+ (NEGATIVE); URINE RBC 10 /uL (0-23.9); URINE UROBILINOGEN 0.2 mg/dL (0.2-1.0); URINE WBC 3 /uL (0-25.8)
[2020-08-12] MEDS: INSULIN SLIDING SCALE (NOVOLOG) 1 VIAL SQ SCH ×4 (07:24→22:47)
[2020-08-12] MEDS: INSULIN (LEVEMIR) 100 UNITS/ML UNITS SQ SCH ×3 (07:25→22:46)
[2020-08-12 07:28] LABS: HEMATOCRIT 41.1 % (35.4-49); MCH 22.3 pg (25.7-33.7); MCHC 31.7 g/dl (32.0-35.9); MEAN CELL VOLUME 70.2 fl (80-96); MEAN PLT VOLUME 7.4 fl (7.5-11.1); PLATELET COUNT 340 K/MM3 (134-434); RBC 5.85 M/mm3 (4.00-5.60); RDW 20.4 % (11.9-15.9)
[2020-08-12] MEDS: TAMSULOSIN HCL 0.4 MG CAP PO SCH (07:52)
[2020-08-12 08:03] LABS: POTASSIUM 4.9 mmol/L (3.5-5.1)
[2020-08-12 08:11] LABS: BLOOD UREA NITROGEN 37.7 mg/dL (7-18); CALCIUM 8.3 mg/dL (8.5-10.1)
[2020-08-12 08:15] LABS: CREATININE 1.2 mg/dL (0.55-1.3)
[2020-08-12] MEDS ORDERED: INSULIN (LEVEMIR) 100 UNITS/ML UNITS SQ SCH (08:50)
[2020-08-12] MEDS: DEXAMETHASONE SOD PHOSPHATE 4 MG/1 ML VIAL IVPUSH SCH (09:32)
[2020-08-12] MEDS: ZINC SULFATE 220 MG CAPSULE (FP) PO SCH (09:34)
[2020-08-12] MEDS: FAMOTIDINE 20 MG TABLET PO SCH ×2 (09:34→22:30)
[2020-08-12] MEDS: MULTIVITAMINS (DAILY MVI) TABLET (FP) PO SCH (09:34)
[2020-08-12] MEDS: amLODIPine BESYLATE 10 MG TABLET (FP) PO SCH (09:34)
[2020-08-12] MEDS: ENOXAPARIN NA (PORCINE) 80 MG/0.8 ML DISP.SYRIN SQ SCH ×2 (09:34→22:47)
[2020-08-12] MEDS: ASPIRIN COATED 81 MG TABLET.EC PO SCH (09:34)
[2020-08-12] MEDS: ASCORBIC ACID 250 MG TABLET (FP) PO SCH ×2 (09:34→22:30)
[2020-08-12 09:43] LABS: ERYTHROCYTE SEDIMENTATION RATE 17 mm/hr (0-20)
[2020-08-12 09:46] LABS: BILIRUBIN,TOTAL 0.5 mg/dL (0.2-1)
[2020-08-13] MEDS: INSULIN SLIDING SCALE (NOVOLOG) 1 VIAL SQ SCH ×4 (06:18→23:05)
[2020-08-13 07:03] LABS: HEMATOCRIT 41.4 % (35.4-49); HEMOGLOBIN 13.2 GM/dL (11.7-16.9); MCH 22.7 pg (25.7-33.7); MCHC 31.9 g/dl (32.0-35.9); MEAN CELL VOLUME 71.1 fl (80-96); PLATELET COUNT 337 K/MM3 (134-434); RBC 5.82 M/mm3 (4.00-5.60); RDW 20.3 % (11.9-15.9); WHITE BLOOD COUNT 20.8 K/mm3 (4.0-10.0)
[2020-08-13 07:16] LABS: INR 1.14 (0.83-1.09)
[2020-08-13 07:27] LABS: POTASSIUM 5.3 mmol/L (3.5-5.1)
[2020-08-13 07:34] LABS: ALBUMIN 2.3 g/dl (3.4-5.0)
[2020-08-13 07:35] LABS: BLOOD UREA NITROGEN 39.2 mg/dL (7-18)
[2020-08-13 07:36] LABS: BILIRUBIN,TOTAL 0.6 mg/dL (0.2-1); TOT PROT 6.2 g/dl (6.4-8.2)
[2020-08-13 07:37] LABS: BILIRUBIN,DIRECT 0.3 mg/dL (0.0-0.2); CALCIUM 8.3 mg/dL (8.5-10.1)
[2020-08-13 07:38] LABS: CREATININE 1.3 mg/dL (0.55-1.3)
[2020-08-13] MEDS: TAMSULOSIN HCL 0.4 MG CAP PO SCH (08:19)
[2020-08-13 09:18] LABS: ERYTHROCYTE SEDIMENTATION RATE 19 mm/hr (0-20)
[2020-08-13] MEDS: ENOXAPARIN NA (PORCINE) 80 MG/0.8 ML DISP.SYRIN SQ SCH ×2 (09:55→23:05)
[2020-08-13] MEDS: DEXAMETHASONE SOD PHOSPHATE 4 MG/1 ML VIAL IVPUSH SCH (09:57)
[2020-08-13] MEDS: SODIUM ZIRCONIUM CYCLOSILICATE (LOKELMA) 5 GM PACKET PO SCH (10:00)
[2020-08-13] MEDS: ASPIRIN COATED 81 MG TABLET.EC PO SCH (10:00)
[2020-08-13] MEDS: MULTIVITAMINS (DAILY MVI) TABLET (FP) PO SCH (10:00)
[2020-08-13] MEDS: FAMOTIDINE 20 MG TABLET PO SCH ×2 (10:00→23:05)
[2020-08-13] MEDS: ZINC SULFATE 220 MG CAPSULE (FP) PO SCH (10:00)
[2020-08-13] MEDS: ASCORBIC ACID 250 MG TABLET (FP) PO SCH ×2 (10:00→23:05)
[2020-08-13] MEDS: amLODIPine BESYLATE 10 MG TABLET (FP) PO SCH (10:00)
[2020-08-13] MEDS ORDERED: INSULIN (LEVEMIR) 100 UNITS/ML UNITS SQ SCH (13:18)
[2020-08-13] MEDS ORDERED: DEXTROSE 50%-WATER - 25 GM/50 ML VIAL IVPUSH PRN (20:41)
[2020-08-13] MEDS ORDERED: LACTATED RINGERS SOLUTION 1,000 ML/1,000 ML INFUS.BAG IV SCH (20:45)
[2020-08-13] MEDS ORDERED: DEXTROSE 50%-WATER - 25 GM/50 ML VIAL IVPUSH SCH (20:45)
[2020-08-13] MEDS: INSULIN (LEVEMIR) 100 UNITS/ML UNITS SQ SCH (22:50)
[2020-08-14] MEDS: INSULIN SLIDING SCALE (NOVOLOG) 1 VIAL SQ SCH ×4 (06:48→22:37)
[2020-08-14] MEDS ORDERED: INSULIN (LEVEMIR) 100 UNITS/ML UNITS SQ SCH (07:00)
[2020-08-14 07:21] LABS: HEMATOCRIT 39.8 % (35.4-49); HEMOGLOBIN 12.6 GM/dL (11.7-16.9); LYMPH % 3.9 % (8-40); MCH 22.7 pg (25.7-33.7); MCHC 31.7 g/dl (32.0-35.9); MEAN CELL VOLUME 71.7 fl (80-96); MEAN PLT VOLUME 8.1 fl (7.5-11.1); MONO % 4.1 % (3.8-10.2); PLATELET COUNT 275 K/MM3 (134-434); RBC 5.55 M/mm3 (4.00-5.60); RDW 20.2 % (11.9-15.9); WHITE BLOOD COUNT 27.8 K/mm3 (4.0-10.0)
[2020-08-14 07:41] LABS: ALBUMIN 2.4 g/dl (3.4-5.0); POTASSIUM 4.9 mmol/L (3.5-5.1)
[2020-08-14 07:45] LABS: BILIRUBIN,DIRECT 0.2 mg/dL (0.0-0.2)
[2020-08-14 07:46] LABS: BILIRUBIN,TOTAL 0.9 mg/dL (0.2-1)
[2020-08-14 07:50] LABS: ALBUMIN 2.4 g/dl (3.4-5.0); BLOOD UREA NITROGEN 41.4 mg/dL (7-18); CALCIUM 8.5 mg/dL (8.5-10.1)
[2020-08-14 07:52] LABS: MAGNESIUM 3.3 mg/dL (1.8-2.4)
[2020-08-14 07:53] LABS: CREATININE 1.3 mg/dL (0.55-1.3); PHOSPHOROUS 5.6 mg/dL (2.5-4.9)
[2020-08-14 07:55] LABS: BILIRUBIN,TOTAL 0.9 mg/dL (0.2-1)
[2020-08-14 09:24] LABS: ANISOCYTOSIS 1+; MACROCYTOSIS 0; PLATELET ESTIMATE NORMAL; TARGET CELLS 1+
[2020-08-14] MEDS: SODIUM ZIRCONIUM CYCLOSILICATE (LOKELMA) 5 GM PACKET PO SCH (10:24)
[2020-08-14] MEDS: ENOXAPARIN NA (PORCINE) 80 MG/0.8 ML DISP.SYRIN SQ SCH ×2 (10:24→22:37)
[2020-08-14] MEDS: ASPIRIN COATED 81 MG TABLET.EC PO SCH (10:25)
[2020-08-14] MEDS: ZINC SULFATE 220 MG CAPSULE (FP) PO SCH (10:25)
[2020-08-14] MEDS: TAMSULOSIN HCL 0.4 MG CAP PO SCH (10:25)
[2020-08-14] MEDS: ASCORBIC ACID 250 MG TABLET (FP) PO SCH ×2 (10:25→22:37)
[2020-08-14] MEDS: FAMOTIDINE 20 MG TABLET PO SCH ×2 (10:25→22:37)
[2020-08-14] MEDS: amLODIPine BESYLATE 10 MG TABLET (FP) PO SCH (10:25)
[2020-08-14] MEDS: MULTIVITAMINS (DAILY MVI) TABLET (FP) PO SCH (10:26)
[2020-08-14] MEDS: DEXAMETHASONE SOD PHOSPHATE 4 MG/1 ML VIAL IVPUSH SCH (10:26)
[2020-08-14] MEDS ORDERED: LACTATED RINGERS SOLUTION 1,000 ML/1,000 ML INFUS.BAG IV ONE (20:57)
[2020-08-14] MEDS: INSULIN (LEVEMIR) 100 UNITS/ML UNITS SQ SCH (22:37)
[2020-08-15 01:12] LABS: ARTERIAL BLD GAS O2 SATURATION 94.6 mmHg (95-98); ARTERIAL BLOOD GAS BASE EXCESS -4.1 mmol/L (-2-2); ARTERIAL BLOOD GAS PO2 75.7 mmHg (80-100); ARTERIAL BLOOD GAS pH 7.348 (7.350-7.450)
[2020-08-15 01:14] LABS: ALLENS TEST POSITIVE
[2020-08-15 01:15] LABS: VENT MODE S/T; VENT RATE 14
[2020-08-15 02:11] LABS: BASO % 0.1 % (0-2.0); HEMOGLOBIN 11.3 GM/dL (11.7-16.9); LYMPH % 6.6 % (8-40); MCH 22.4 pg (25.7-33.7); MCHC 31.5 g/dl (32.0-35.9); MEAN CELL VOLUME 71.2 fl (80-96); MEAN PLT VOLUME 8.1 fl (7.5-11.1); MONO % 3.8 % (3.8-10.2); NEUT % 89.5 % (42.8-82.8); PLATELET COUNT 258 K/MM3 (134-434); RBC 5.06 M/mm3 (4.00-5.60); RDW 20.6 % (11.9-15.9); WHITE BLOOD COUNT 26.7 K/mm3 (4.0-10.0)
[2020-08-15 02:23] LABS: INR 1.07 (0.83-1.09); PROTHROMBIN TIME (PATIENT) 13.1 SEC (9.7-13.0)
[2020-08-15 02:25] LABS: ACTIVATED PTT 32.7 SECONDS (25.2-36.5)
[2020-08-15 02:26] LABS: CHLORIDE 100 mmol/L (98-107); POTASSIUM 4.4 mmol/L (3.5-5.1); SODIUM 136 mmol/L (136-145)
[2020-08-15 02:28] LABS: ANION GAP 11 MMOL/L (8-16); BLOOD UREA NITROGEN 37.3 mg/dL (7-18); CALCIUM 8.3 mg/dL (8.5-10.1); CO2 25 mmol/L (21-32); GLUCOSE,RANDOM 124 mg/dL (74-106); MAGNESIUM 3.2 mg/dL (1.8-2.4)
[2020-08-15 02:32] LABS: CREATININE 1.4 mg/dL (0.55-1.3); PHOSPHOROUS 5.7 mg/dL (2.5-4.9)
[2020-08-15 04:13] LABS: ANISOCYTOSIS 1+; MACROCYTOSIS 0; PLATELET ESTIMATE NORMAL; TARGET CELLS 1+
[2020-08-15] MEDS: INSULIN (LEVEMIR) 100 UNITS/ML UNITS SQ SCH ×2 (06:35→22:46)
[2020-08-15] MEDS: INSULIN SLIDING SCALE (NOVOLOG) 1 VIAL SQ SCH ×4 (06:35→22:47)
[2020-08-15 07:17] LABS: HEMATOCRIT 33.8 % (35.4-49); HEMOGLOBIN 10.6 GM/dL (11.7-16.9); MCH 22.2 pg (25.7-33.7); MCHC 31.3 g/dl (32.0-35.9); MEAN CELL VOLUME 70.8 fl (80-96); PLATELET COUNT 232 K/MM3 (134-434); RBC 4.77 M/mm3 (4.00-5.60); RDW 20.6 % (11.9-15.9)
[2020-08-15 08:08] LABS: POTASSIUM 4.5 mmol/L (3.5-5.1)
[2020-08-15 08:16] LABS: MAGNESIUM 2.9 mg/dL (1.8-2.4)
[2020-08-15 08:18] LABS: ALBUMIN 2.2 g/dl (3.4-5.0); BLOOD UREA NITROGEN 35.6 mg/dL (7-18); CALCIUM 8.3 mg/dL (8.5-10.1)
[2020-08-15 08:20] LABS: BILIRUBIN,TOTAL 0.6 mg/dL (0.2-1); CREATININE 1.1 mg/dL (0.55-1.3); PHOSPHOROUS 5.2 mg/dL (2.5-4.9); TOT PROT 5.4 g/dl (6.4-8.2)
[2020-08-15 09:24] LABS: ERYTHROCYTE SEDIMENTATION RATE 30 mm/hr (0-20)
[2020-08-15] MEDS: MULTIVITAMINS (DAILY MVI) TABLET (FP) PO SCH (11:00)
[2020-08-15] MEDS: TAMSULOSIN HCL 0.4 MG CAP PO SCH (11:00)
[2020-08-15] MEDS: FAMOTIDINE 20 MG TABLET PO SCH ×2 (11:00→22:36)
[2020-08-15] MEDS: ZINC SULFATE 220 MG CAPSULE (FP) PO SCH (11:00)
[2020-08-15] MEDS: amLODIPine BESYLATE 10 MG TABLET (FP) PO SCH (11:00)
[2020-08-15] MEDS: DEXAMETHASONE SOD PHOSPHATE 4 MG/1 ML VIAL IVPUSH SCH (11:01)
[2020-08-15] MEDS: ASCORBIC ACID 250 MG TABLET (FP) PO SCH ×2 (11:01→22:40)
[2020-08-15] MEDS: SODIUM CHLORIDE 1,000 ML IV SCH (11:01)
[2020-08-15] MEDS: ENOXAPARIN NA (PORCINE) 80 MG/0.8 ML DISP.SYRIN SQ SCH ×2 (11:02→22:45)
[2020-08-15] MEDS: ASPIRIN COATED 81 MG TABLET.EC PO SCH (11:02)
[2020-08-15] MEDS: SODIUM ZIRCONIUM CYCLOSILICATE (LOKELMA) 5 GM PACKET PO SCH (11:02)
[2020-08-15] MEDS ORDERED: INSULIN (NOVOLOG) ASPART 100 UNITS/ML 10ML VIAL ONE (17:43)
[2020-08-16] MEDS: INSULIN (LEVEMIR) 100 UNITS/ML UNITS SQ SCH ×2 (07:00→22:13)
[2020-08-16 07:23] LABS: HEMATOCRIT 30.2 % (35.4-49); HEMOGLOBIN 9.3 GM/dL (11.7-16.9); MCHC 30.9 g/dl (32.0-35.9); MEAN CELL VOLUME 71.2 fl (80-96); PLATELET COUNT 199 K/MM3 (134-434); RBC 4.24 M/mm3 (4.00-5.60); RDW 20.4 % (11.9-15.9); WHITE BLOOD COUNT 24.6 K/mm3 (4.0-10.0)
[2020-08-16 07:59] LABS: POTASSIUM 4.7 mmol/L (3.5-5.1)
[2020-08-16 08:02] LABS: ALBUMIN 2.2 g/dl (3.4-5.0); BLOOD UREA NITROGEN 28.8 mg/dL (7-18); CALCIUM 7.7 mg/dL (8.5-10.1)
[2020-08-16 08:07] LABS: BILIRUBIN,TOTAL 1.4 mg/dL (0.2-1); ERYTHROCYTE SEDIMENTATION RATE 17 mm/hr (0-20); TOT PROT 5.3 g/dl (6.4-8.2)
[2020-08-16] MEDS ORDERED: PT OWN MED DRAWER 7, Y5N ONE ×2 (08:18→09:39)
[2020-08-16] MEDS: TAMSULOSIN HCL 0.4 MG CAP PO SCH (08:54)
[2020-08-16] MEDS: amLODIPine BESYLATE 10 MG TABLET (FP) PO SCH (09:11)
[2020-08-16] MEDS: ENOXAPARIN NA (PORCINE) 80 MG/0.8 ML DISP.SYRIN SQ SCH ×2 (09:11→22:11)
[2020-08-16] MEDS: ASPIRIN COATED 81 MG TABLET.EC PO SCH (09:11)
[2020-08-16] MEDS: ASCORBIC ACID 250 MG TABLET (FP) PO SCH ×2 (09:12→22:11)
[2020-08-16] MEDS: MULTIVITAMINS (DAILY MVI) TABLET (FP) PO SCH (09:12)
[2020-08-16] MEDS: FAMOTIDINE 20 MG TABLET PO SCH ×2 (09:12→22:11)
[2020-08-16] MEDS: ZINC SULFATE 220 MG CAPSULE (FP) PO SCH (09:12)
[2020-08-16] MEDS: SODIUM CHLORIDE 1,000 ML IV SCH ×2 (09:13→14:37)
[2020-08-16] MEDS ORDERED: DEXAMETHASONE 1.5 MG TABLET PO SCH (10:00)
[2020-08-16] MEDS: INSULIN SLIDING SCALE (NOVOLOG) 1 VIAL SQ SCH ×2 (11:43→16:36)
[2020-08-17] MEDS: INSULIN (LEVEMIR) 100 UNITS/ML UNITS SQ SCH ×2 (07:19→22:00)
[2020-08-17] MEDS: INSULIN SLIDING SCALE (NOVOLOG) 1 VIAL SQ SCH ×4 (07:20→22:00)
[2020-08-17] MEDS: SODIUM CHLORIDE 1,000 ML IV SCH (08:15)
[2020-08-17] MEDS: ASCORBIC ACID 250 MG TABLET (FP) PO SCH ×2 (10:12→22:32)
[2020-08-17] MEDS: ASPIRIN COATED 81 MG TABLET.EC PO SCH (10:12)
[2020-08-17] MEDS: amLODIPine BESYLATE 10 MG TABLET (FP) PO SCH (10:12)
[2020-08-17] MEDS: ZINC SULFATE 220 MG CAPSULE (FP) PO SCH (10:12)
[2020-08-17] MEDS: FAMOTIDINE 20 MG TABLET PO SCH ×2 (10:12→22:28)
[2020-08-17] MEDS: DEXAMETHASONE SOD PHOSPHATE 4 MG/1 ML VIAL IVPUSH SCH (10:12)
[2020-08-17] MEDS: MULTIVITAMINS (DAILY MVI) TABLET (FP) PO SCH (10:12)
[2020-08-17] MEDS: ENOXAPARIN NA (PORCINE) 80 MG/0.8 ML DISP.SYRIN SQ SCH ×2 (10:12→22:28)
[2020-08-17] MEDS: TAMSULOSIN HCL 0.4 MG CAP PO SCH (10:12)
[2020-08-17 19:07] LABS: HEP B CORE AB, TOT Positive (Negative)
[2020-08-18] MEDS: INSULIN SLIDING SCALE (NOVOLOG) 1 VIAL SQ SCH ×6 (00:09→23:10)
[2020-08-18] MEDS: INSULIN (LEVEMIR) 100 UNITS/ML UNITS SQ SCH ×2 (06:31→23:00)
[2020-08-18 07:08] LABS: BASO % 0.8 % (0-2.0); EOS % 0.6 % (0-4.5); HEMATOCRIT 29.2 % (35.4-49); HEMOGLOBIN 9.2 GM/dL (11.7-16.9); LYMPH % 9.1 % (8-40); MCH 22.6 pg (25.7-33.7); MCHC 31.3 g/dl (32.0-35.9); MEAN CELL VOLUME 72.2 fl (80-96); MEAN PLT VOLUME 7.6 fl (7.5-11.1); MONO % 2.1 % (3.8-10.2); NEUT % 87.4 % (42.8-82.8); PLATELET COUNT 178 K/MM3 (134-434); RBC 4.05 M/mm3 (4.00-5.60); WHITE BLOOD COUNT 21.1 K/mm3 (4.0-10.0)
[2020-08-18 07:28] LABS: POTASSIUM 3.8 mmol/L (3.5-5.1)
[2020-08-18 07:37] LABS: ALBUMIN 2.3 g/dl (3.4-5.0); BLOOD UREA NITROGEN 20.6 mg/dL (7-18); CALCIUM 7.9 mg/dL (8.5-10.1); MAGNESIUM 2.5 mg/dL (1.8-2.4)
[2020-08-18 07:40] LABS: CREATININE 0.9 mg/dL (0.55-1.3)
[2020-08-18 07:42] LABS: BILIRUBIN,TOTAL 0.8 mg/dL (0.2-1); TOT PROT 5.6 g/dl (6.4-8.2)
[2020-08-18] MEDS: SODIUM CHLORIDE 1,000 ML IV SCH (08:15)
[2020-08-18 09:10] LABS: ANISOCYTOSIS 1+; MACROCYTOSIS 0; PLATELET ESTIMATE NORMAL; TARGET CELLS 1+
[2020-08-18] MEDS: FAMOTIDINE 20 MG TABLET PO SCH ×2 (09:35→22:59)
[2020-08-18] MEDS: DEXAMETHASONE SOD PHOSPHATE 4 MG/1 ML VIAL IVPUSH SCH (09:35)
[2020-08-18] MEDS: ENOXAPARIN NA (PORCINE) 80 MG/0.8 ML DISP.SYRIN SQ SCH ×2 (09:35→22:59)
[2020-08-18] MEDS: ASCORBIC ACID 250 MG TABLET (FP) PO SCH ×2 (09:36→22:59)
[2020-08-18] MEDS: ASPIRIN COATED 81 MG TABLET.EC PO SCH (09:36)
[2020-08-18] MEDS: ZINC SULFATE 220 MG CAPSULE (FP) PO SCH (09:36)
[2020-08-18] MEDS: TAMSULOSIN HCL 0.4 MG CAP PO SCH (09:36)
[2020-08-18] MEDS: MULTIVITAMINS (DAILY MVI) TABLET (FP) PO SCH (09:36)
[2020-08-18] MEDS: amLODIPine BESYLATE 10 MG TABLET (FP) PO SCH (09:36)
[2020-08-18] MEDS ORDERED: INSULIN (NOVOLOG) ASPART 100 UNITS/ML 10ML VIAL ONE (11:11)
[2020-08-19] MEDS: INSULIN (LEVEMIR) 100 UNITS/ML UNITS SQ SCH ×2 (06:19→22:20)
[2020-08-19] MEDS: INSULIN SLIDING SCALE (NOVOLOG) 1 VIAL SQ SCH ×3 (06:27→22:41)
[2020-08-19 07:53] LABS: POTASSIUM 3.7 mmol/L (3.5-5.1)
[2020-08-19 08:18] LABS: CALCIUM 8.2 mg/dL (8.5-10.1)
[2020-08-19 08:25] LABS: CREATININE 0.9 mg/dL (0.55-1.3)
[2020-08-19 09:53] LABS: BILIRUBIN,TOTAL 0.4 mg/dL (0.2-1)
[2020-08-19] MEDS: ENOXAPARIN NA (PORCINE) 80 MG/0.8 ML DISP.SYRIN SQ SCH ×2 (09:54→22:19)
[2020-08-19] MEDS: ASPIRIN COATED 81 MG TABLET.EC PO SCH (09:55)
[2020-08-19] MEDS: TAMSULOSIN HCL 0.4 MG CAP PO SCH (09:55)
[2020-08-19] MEDS: ASCORBIC ACID 250 MG TABLET (FP) PO SCH ×2 (09:55→22:19)
[2020-08-19] MEDS: DEXAMETHASONE SOD PHOSPHATE 4 MG/1 ML VIAL IVPUSH SCH (09:55)
[2020-08-19] MEDS: FAMOTIDINE 20 MG TABLET PO SCH ×2 (09:55→22:19)
[2020-08-19] MEDS: amLODIPine BESYLATE 10 MG TABLET (FP) PO SCH (09:55)
[2020-08-19] MEDS: ZINC SULFATE 220 MG CAPSULE (FP) PO SCH (09:55)
[2020-08-19] MEDS: MULTIVITAMINS (DAILY MVI) TABLET (FP) PO SCH (09:55)
[2020-08-19] MEDS ORDERED: INSULIN (NOVOLOG) ASPART 100 UNITS/ML 10ML VIAL ONE (21:35)
[2020-08-20] MEDS: INSULIN SLIDING SCALE (NOVOLOG) 1 VIAL SQ SCH ×4 (06:33→22:57)
[2020-08-20] MEDS: INSULIN (LEVEMIR) 100 UNITS/ML UNITS SQ SCH ×2 (08:00→22:43)
[2020-08-20 08:31] LABS: BASO % 0.5 % (0-2.0); HEMATOCRIT 26.3 % (35.4-49); HEMOGLOBIN 8.2 GM/dL (11.7-16.9); LYMPH % 10.6 % (8-40); MCH 22.9 pg (25.7-33.7); MCHC 31.3 g/dl (32.0-35.9); MEAN CELL VOLUME 73.2 fl (80-96); MEAN PLT VOLUME 7.9 fl (7.5-11.1); MONO % 3.3 % (3.8-10.2); NEUT % 84.6 % (42.8-82.8); PLATELET COUNT 193 K/MM3 (134-434); RBC 3.59 M/mm3 (4.00-5.60); WHITE BLOOD COUNT 17.9 K/mm3 (4.0-10.0)
[2020-08-20 08:49] LABS: POTASSIUM 3.8 mmol/L (3.5-5.1)
[2020-08-20 08:54] LABS: ALBUMIN 2.1 g/dl (3.4-5.0); BLOOD UREA NITROGEN 21.1 mg/dL (7-18); CALCIUM 7.9 mg/dL (8.5-10.1)
[2020-08-20 08:55] LABS: MAGNESIUM 2.3 mg/dL (1.8-2.4)
[2020-08-20 08:57] LABS: PHOSPHOROUS 3.7 mg/dL (2.5-4.9)
[2020-08-20 08:58] LABS: BILIRUBIN,TOTAL 0.5 mg/dL (0.2-1); TOT PROT 5.1 g/dl (6.4-8.2)
[2020-08-20 09:29] LABS: ERYTHROCYTE SEDIMENTATION RATE 25 mm/hr (0-20)
[2020-08-20] MEDS: DEXAMETHASONE SOD PHOSPHATE 4 MG/1 ML VIAL IVPUSH SCH (10:21)
[2020-08-20] MEDS: MULTIVITAMINS (DAILY MVI) TABLET (FP) PO SCH (10:21)
[2020-08-20] MEDS: amLODIPine BESYLATE 10 MG TABLET (FP) PO SCH (10:21)
[2020-08-20] MEDS: TAMSULOSIN HCL 0.4 MG CAP PO SCH (10:21)
[2020-08-20] MEDS: ZINC SULFATE 220 MG CAPSULE (FP) PO SCH (10:21)
[2020-08-20] MEDS: ASPIRIN COATED 81 MG TABLET.EC PO SCH (10:21)
[2020-08-20] MEDS: ENOXAPARIN NA (PORCINE) 80 MG/0.8 ML DISP.SYRIN SQ SCH ×2 (10:22→22:45)
[2020-08-20] MEDS: FAMOTIDINE 20 MG TABLET PO SCH ×2 (10:22→22:45)
[2020-08-20] MEDS: ASCORBIC ACID 250 MG TABLET (FP) PO SCH ×2 (10:22→22:45)
[2020-08-20] MEDS: DOCUSATE SODIUM 100 MG CAPSULE (FP) PO SCH (10:22)
[2020-08-20 10:56] LABS: ANISOCYTOSIS 2+; MACROCYTOSIS 0; PLATELET ESTIMATE NORMAL
[2020-08-21] MEDS: INSULIN SLIDING SCALE (NOVOLOG) 1 VIAL SQ SCH ×4 (06:39→21:33)
[2020-08-21] MEDS: INSULIN (LEVEMIR) 100 UNITS/ML UNITS SQ SCH ×2 (07:35→21:34)
[2020-08-21 08:21] LABS: HEMATOCRIT 26.6 % (35.4-49); HEMOGLOBIN 8.4 GM/dL (11.7-16.9); MCH 22.9 pg (25.7-33.7); MCHC 31.5 g/dl (32.0-35.9); MEAN CELL VOLUME 72.7 fl (80-96); MEAN PLT VOLUME 7.4 fl (7.5-11.1); PLATELET COUNT 206 K/MM3 (134-434); RBC 3.66 M/mm3 (4.00-5.60); RDW 20.6 % (11.9-15.9); WHITE BLOOD COUNT 17.1 K/mm3 (4.0-10.0)
[2020-08-21 08:44] LABS: POTASSIUM 4.2 mmol/L (3.5-5.1)
[2020-08-21 08:55] LABS: ALBUMIN 2.3 g/dl (3.4-5.0); BLOOD UREA NITROGEN 21.4 mg/dL (7-18)
[2020-08-21 08:56] LABS: CALCIUM 8.3 mg/dL (8.5-10.1)
[2020-08-21 09:00] LABS: BILIRUBIN,TOTAL 0.6 mg/dL (0.2-1); CREATININE 0.9 mg/dL (0.55-1.3); TOT PROT 5.6 g/dl (6.4-8.2)
[2020-08-21 09:25] LABS: ERYTHROCYTE SEDIMENTATION RATE 35 mm/hr (0-20)
[2020-08-21] MEDS: ZINC SULFATE 220 MG CAPSULE (FP) PO SCH (09:27)
[2020-08-21] MEDS: ENOXAPARIN NA (PORCINE) 80 MG/0.8 ML DISP.SYRIN SQ SCH ×2 (09:27→21:34)
[2020-08-21] MEDS: MULTIVITAMINS (DAILY MVI) TABLET (FP) PO SCH (09:27)
[2020-08-21] MEDS: ASCORBIC ACID 250 MG TABLET (FP) PO SCH ×2 (09:27→21:35)
[2020-08-21] MEDS: TAMSULOSIN HCL 0.4 MG CAP PO SCH (09:27)
[2020-08-21] MEDS: DEXAMETHASONE SOD PHOSPHATE 4 MG/1 ML VIAL IVPUSH SCH (09:27)
[2020-08-21] MEDS: ASPIRIN COATED 81 MG TABLET.EC PO SCH (09:27)
[2020-08-21] MEDS: DOCUSATE SODIUM 100 MG CAPSULE (FP) PO SCH (09:27)
[2020-08-21] MEDS: FAMOTIDINE 20 MG TABLET PO SCH ×2 (09:27→21:35)
[2020-08-21] MEDS: amLODIPine BESYLATE 10 MG TABLET (FP) PO SCH (09:27)
[2020-08-21] MEDS ORDERED: INSULIN (NOVOLOG) ASPART 100 UNITS/ML 10ML VIAL ONE (11:36)
[2020-08-22] MEDS: INSULIN (LEVEMIR) 100 UNITS/ML UNITS SQ SCH ×2 (07:07→21:40)
[2020-08-22] MEDS: INSULIN SLIDING SCALE (NOVOLOG) 1 VIAL SQ SCH ×4 (07:07→21:39)
[2020-08-22 07:49] LABS: POTASSIUM 3.6 mmol/L (3.5-5.1)
[2020-08-22 07:53] LABS: ALBUMIN 2.5 g/dl (3.4-5.0)
[2020-08-22 07:55] LABS: CALCIUM 8.9 mg/dL (8.5-10.1)
[2020-08-22 07:56] LABS: BLOOD UREA NITROGEN 26.2 mg/dL (7-18); MAGNESIUM 2.4 mg/dL (1.8-2.4)
[2020-08-22 07:58] LABS: BILIRUBIN,TOTAL 0.4 mg/dL (0.2-1); TOT PROT 5.7 g/dl (6.4-8.2)
[2020-08-22 08:14] LABS: HEMATOCRIT 27.9 % (35.4-49); HEMOGLOBIN 8.7 GM/dL (11.7-16.9); MCHC 31.1 g/dl (32.0-35.9); MEAN CELL VOLUME 73.9 fl (80-96); MEAN PLT VOLUME 7.7 fl (7.5-11.1); PLATELET COUNT 216 K/MM3 (134-434); RBC 3.77 M/mm3 (4.00-5.60); RDW 21.4 % (11.9-15.9); WHITE BLOOD COUNT 20.4 K/mm3 (4.0-10.0)
[2020-08-22 09:49] LABS: ERYTHROCYTE SEDIMENTATION RATE 30 mm/hr (0-20)
[2020-08-22] MEDS ORDERED: PT OWN MED DRAWER 7, Y5N ONE (09:56)
[2020-08-22] MEDS: TAMSULOSIN HCL 0.4 MG CAP PO SCH (10:07)
[2020-08-22] MEDS: ENOXAPARIN NA (PORCINE) 80 MG/0.8 ML DISP.SYRIN SQ SCH ×2 (10:07→21:33)
[2020-08-22] MEDS: FAMOTIDINE 20 MG TABLET PO SCH ×2 (10:07→21:32)
[2020-08-22] MEDS: ZINC SULFATE 220 MG CAPSULE (FP) PO SCH (10:08)
[2020-08-22] MEDS: ASPIRIN COATED 81 MG TABLET.EC PO SCH (10:08)
[2020-08-22] MEDS: ASCORBIC ACID 250 MG TABLET (FP) PO SCH ×2 (10:08→21:33)
[2020-08-22] MEDS: DEXAMETHASONE SOD PHOSPHATE 4 MG/1 ML VIAL IVPUSH SCH (10:08)
[2020-08-22] MEDS: amLODIPine BESYLATE 10 MG TABLET (FP) PO SCH (10:08)
[2020-08-22] MEDS: DOCUSATE SODIUM 100 MG CAPSULE (FP) PO SCH (10:08)
[2020-08-22] MEDS: MULTIVITAMINS (DAILY MVI) TABLET (FP) PO SCH (10:08)
[2020-08-22] MEDS ORDERED: POLYETHYLENE GLYCOL 3350 119 GM BTL PO ONE (13:26)
[2020-08-23] MEDS: INSULIN SLIDING SCALE (NOVOLOG) 1 VIAL SQ SCH ×2 (06:48→11:10)
[2020-08-23] MEDS: INSULIN (LEVEMIR) 100 UNITS/ML UNITS SQ SCH (06:48)
[2020-08-23 08:31] LABS: HEMATOCRIT 25.5 % (35.4-49); MCH 22.9 pg (25.7-33.7); MCHC 31.2 g/dl (32.0-35.9); MEAN CELL VOLUME 73.5 fl (80-96); MEAN PLT VOLUME 7.7 fl (7.5-11.1); PLATELET COUNT 209 K/MM3 (134-434); RBC 3.48 M/mm3 (4.00-5.60); RDW 22.1 % (11.9-15.9); WHITE BLOOD COUNT 16.3 K/mm3 (4.0-10.0)
[2020-08-23 08:56] LABS: POTASSIUM 4.2 mmol/L (3.5-5.1)
[2020-08-23] MEDS: ASCORBIC ACID 250 MG TABLET (FP) PO SCH (09:04)
[2020-08-23] MEDS: ZINC SULFATE 220 MG CAPSULE (FP) PO SCH (09:04)
[2020-08-23] MEDS: ASPIRIN COATED 81 MG TABLET.EC PO SCH (09:04)
[2020-08-23] MEDS: ENOXAPARIN NA (PORCINE) 80 MG/0.8 ML DISP.SYRIN SQ SCH (09:04)
[2020-08-23] MEDS: DOCUSATE SODIUM 100 MG CAPSULE (FP) PO SCH (09:04)
[2020-08-23] MEDS: amLODIPine BESYLATE 10 MG TABLET (FP) PO SCH (09:04)
[2020-08-23] MEDS: TAMSULOSIN HCL 0.4 MG CAP PO SCH (09:04)
[2020-08-23] MEDS: MULTIVITAMINS (DAILY MVI) TABLET (FP) PO SCH (09:08)
[2020-08-23 09:14] LABS: ALBUMIN 2.4 g/dl (3.4-5.0); BLOOD UREA NITROGEN 25.6 mg/dL (7-18)
[2020-08-23 09:16] LABS: CALCIUM 8.5 mg/dL (8.5-10.1)
[2020-08-23 09:17] LABS: CREATININE 0.9 mg/dL (0.55-1.3)
[2020-08-23 09:18] LABS: BILIRUBIN,TOTAL 0.7 mg/dL (0.2-1); TOT PROT 5.5 g/dl (6.4-8.2)
[2020-08-23 09:51] LABS: ERYTHROCYTE SEDIMENTATION RATE 44 mm/hr (0-20)
[2020-08-23] MEDS: DEXAMETHASONE SOD PHOSPHATE 4 MG/1 ML VIAL IVPUSH SCH (09:52)
[2020-08-23] MEDS: FAMOTIDINE 20 MG TABLET PO SCH (09:52)
[2020-08-23] MEDS ORDERED: DOCUSATE SODIUM 100 MG CAPSULE (FP) PO ONE (12:24)
[2020-08-23] MEDS ORDERED: POLYETHYLENE GLYCOL 3350 119 GM BTL PO ONE (12:24)
[2020-08-23 14:18] VITALS: BP 133/89; PULSE 118; TEMP 98.8
[2020-08-23] MEDS ORDERED: INSULIN (LEVEMIR) 100 UNITS/ML UNITS SQ SCH (22:00)
== END 2020-08-23 16:47 | DRG 177 ==
LOC: SUPCPDRO 13:20 → JER 13:20 → JERBED 17:38 → J6S 22:06 → J4W 08-02 18:37
PROVIDERS: ADMIT Internal Medicine; ATTEND Internal Medicine
PROC: XW13325 Transfusion of Convalescent Plasma (Nonautologous) into Peripheral Vein, Percutaneous Approach, New Technology Group 5 (ICD-10-PCS; principal; 2020-07-30)
PROC: XW033E5 Introduction of Remdesivir Anti-infective into Peripheral Vein, Percutaneous Approach, New Technology Group 5 (ICD-10-PCS; 2020-07-30)
PROC: 8E0ZXY6 Isolation (ICD-10-PCS; 2020-07-30)
PROC: 5A09557 Assistance with Respiratory Ventilation, Greater than 96 Consecutive Hours, Continuous Positive Airway Pressure (ICD-10-PCS; 2020-08-03)
DX: U07.1 COVID-19 (principal); A41.89 Other specified sepsis; J12.89 Other viral pneumonia; J96.01 Acute respiratory failure with hypoxia; E87.1 Hypo-osmolality and hyponatremia; N17.9 Acute kidney failure, unspecified; I31.3 Pericardial effusion (noninflammatory); E11.65 Type 2 diabetes mellitus with hyperglycemia; E88.09 Other disorders of plasma-protein metabolism, not elsewhere classified; E86.0 Dehydration; N40.0 Benign prostatic hyperplasia without lower urinary tract symptoms; E87.5 Hyperkalemia; E11.22 Type 2 diabetes mellitus with diabetic chronic kidney disease; I12.9 Hypertensive chronic kidney disease with stage 1 through stage 4 chronic kidney disease, or unspecified chronic kidney disease; N18.9 Chronic kidney disease, unspecified; E11.40 Type 2 diabetes mellitus with diabetic neuropathy, unspecified; R74.01 Elevation of levels of liver transaminase levels; R94.5 Abnormal results of liver function studies; E78.5 Hyperlipidemia, unspecified; Z79.4 Long term (current) use of insulin; E11.649 Type 2 diabetes mellitus with hypoglycemia without coma; H70.91 Unspecified mastoiditis, right ear; S40.021A Contusion of right upper arm, initial encounter; W19.XXXA Unspecified fall, initial encounter; Y93.9 Activity, unspecified; Y92.230 Patient room in hospital as the place of occurrence of the external cause; Y99.8 Other external cause status; K59.00 Constipation, unspecified; K80.20 Calculus of gallbladder without cholecystitis without obstruction
CPT/HCPCS: 36415; 36430; 36600; 70450-TC; 71045-TC-FY; 71046-TC-FY; 71250-TC; 76775-TC; 80048; 80053; 80076; 81003; 82010; 82247; 82550; 82553; 82565; 82728; 82803; 82962; 83036; 83615; 83735; 83930; 84100; 84132; 84156; 84450; 84460; 84484; 85025; 85027; 85379; 85610; 85651; 85730; 86140; 86704; 86706; 86707; 86708; 86709; 86803; 86850; 86900; 86901; 87040; 87086; 87340; 93005; 93010; 93970-TC; 94660; 97116-GP; 97162-GP; 99285-25; C9803; J1644; P9017; U0003